=== PATIENT | male | born 1955 | race Caucasian/White ===

== ENCOUNTER 2016-05-21 13:38 | Inpatient (IN) | payer OTHER ==
[~2016-05-21] VITALS: Ht 177.8 cm; Wt 131.5 kg
[~2016-05-21 13:38] MED LIST: AVODART0.5 M1 PO; AZELASTINE137 MCG/0. NASB; CLONAZEPAM0.5 M2 PO; CLOPIDOGREL75 M1 PO; DILAUDID 4 MG TA4 MG PO; DILAUDID2 MG PO; ECOTRIN81 MG PO; FAMOTIDINE40 M1 PO; FOLIC ACID1 M1 PO; FONDAPARIN10 MG/0.8 SC; METHOTREXATE 22.5 MG PO; MULTIVITAMIN1 TAB PO; NASONEX0.05 MG/Ac; NASONEX0.05 MG/Ac INH; PERCOCET 325 MG1 TA2 PO; PERCOCET 325 MG1 TAB PO; PRAVACHOL80 M1 PO; SERTRALINE HCL50 MG PO; TERAZOSIN HCL10 M1 PO; TRAMADOL HCL50 MG PO; VALTREX1 GM PO; XELJANZ5 MG PO; ZOFRAN4 M1 SL
--- NOTE | 2016-05-21 13:49 | NUR ---
PT STATES HE TOOK TAMIFLU THIS AMD AND HIS IS CURRENTLY ON AMOXICILLIN BID
--- NOTE | 2016-05-21 13:49 | NUR ---
PT STATES HE AN URI AT [facility] AND FINISHED ABX ABOUT 1 WEEK AGO. PT STATES COUGH CONT. AND HIS SINUSES ARE SWOLLEN. PT HAVE FEVER, NAUSEA AND HAS A CROUP TYPE COUGH.
--- NOTE | 2016-05-21 14:10 | NUR ---
DR MENJIVAR AT BEDSIDE
--- NOTE | 2016-05-21 14:37 | NUR ---
BACK FROM X-RAY TO ROOM 12.
--- NOTE | 2016-05-21 14:45 | NUR ---
FLU SWAB TAKEN THROAT CULTURE TAKEN BLOOD DTWN DIRECTED. 20 G ALBA PLACED IN LAC IV OF N/S STARTED W/O X ONE LITER PT MEDICATED DIRECTED, SEE MAR
--- NOTE | 2016-05-21 14:52 | RADIOLOGY REPORT ---
EXAMINATION: PA and lateral chest radiograph CLINICAL INFORMATION: Cough and fever COMPARISON: Chest radiograph 04/28/2016 TECHNIQUE: PA and lateral views of the chest were obtained. FINDINGS: Stable appearing chronic elevation of the left hemidiaphragm. Stable peribronchial thickening suggesting chronic small airways disease. No new focal airspace opacities are appreciated. The interstitium remains prominent and unchanged. No pneumothorax. Chronic left pleural thickening. Median sternotomy wires appear intact. No acute osseous abnormalities. IMPRESSION: Chronic elevation of the left hemidiaphragm, chronic interstitial markings, and chronic small airways disease without focal pneumonia appreciated.
[2016-05-21 14:54] LABS: ABSOLUTE BASOPHIL COUNT 0 /CUMM (0.0-0.2); ABSOLUTE EOSINOPHIL COUNT 0 /CUMM (0.0-0.7); ABSOLUTE GRANULOCYTE CT 5.1 /CUMM (1.4-6.5); ABSOLUTE LYMPH COUNT 0.7 /CUMM (1.2-3.4); BASOPHIL % 0.4 % (0.0-2.0); EOSINOPHIL % 0.4 % (0-5); GRANULOCYTE % 74.8 % (42.2-75.2); HEMATOCRIT 41.6 % (42-52); MEAN CORPUSCULAR HGB 31.9 PG (27.0-31.0); MEAN CORPUSCULAR HGB CONC 33.2 G/DL (33.0-37.0); MEAN PLATELET VOLUME 7.5 FL (7.4-10.4); PLATELET COUNT 265 /CUMM (130-400); RBC DISTRIBUTION WIDTH 14.5 % (11.5-14.5); RED BLOOD CELL CT 4.34 /CUMM (4.70-6.10); WHITE BLOOD CELL COUNT 6.9 /CUMM (4.8-10.8)
--- NOTE | 2016-05-21 14:54 | NUR ---
RT PAGED FOR AGUSTO
[2016-05-21] MEDS ORDERED: BREO ELLIPTA 11 EACH PO (15:07)
[2016-05-21] MEDS ORDERED: AMOXICILLIN875 M1 PO (15:10)
[2016-05-21] MEDS ORDERED: TAMIFLU75 M1 PO (15:10)
[2016-05-21] MEDS ORDERED: CHERATUSSIN AC118 ML PO (15:10)
[2016-05-21] MEDS ORDERED: ALBUTEROL0.63 MG/1 INH/SOL (15:12)
--- NOTE | 2016-05-21 15:13 | ED INFLUENZA/URI COMPLAINT ---
See Addendum History of Present Illness General Chief Complaint: Upper Respiratory Sx/Fever Stated Complaint: FEVER,SORE THROAT,COUGHING Source: patient, family, old records Exam Limitations: no limitations Vital Signs & Intake/Output Vital Signs & Intake/Output Vital Signs Date Time Temp Pulse Resp B/P Pulse O2 O2 Flow FiO2 Ox Delivery Rate 05/21 1549 92 Room Air 05/21 1500 95 05/21 1349 100.4 115 18 132/76 92 Room Air Allergies Coded Allergies: erythromycin base (From Erythrocin) (Severe, ANAPHYLACTIC 07/11/15) Reconcile Medications Albuterol Sulfate 0.63 MG/3 ML VIAL.NEB 1 Vial INH/LA 4 TIMES/DAY PRN BREATHING PROBLEMS (Reported) Amoxicillin 875 MG TABLET 1 TAB PO BID FLU (Reported) AZELASTINE HCL (Astelin) 137 MCG/0.137 ML SPRAY.PUMP 2 SPRAY NASB BID ALLERGIES (Reported) Clonazepam 0.5 MG TABLET 1 TAB PO DAILY RESTLESS LEGS (Reported) CLOPIDOGREL BISULFATE (Clopidogrel) 75 MG TABLET 1 TAB PO DAILY BLOOD THINNER (Reported) Dutasteride (Avodart) 0.5 MG CAPSULE 1 CAP PO DAILY PROSTATE (Reported) Famotidine 40 MG TABLET 1 TAB PO BID GI (Reported) Fluticasone/Vilanterol (Breo Ellipta 100-25 Mcg INH) 100 MCG-25 MCG/DOSE BLST.W.DEV 1 PUFF PO DAILY BREATHING PROBLEMS (Reported) Folic Acid 1 MG TABLET 1 MG PO DAILY FOLIC ACID SUPPLEMENT (Reported) Fondaparinux Sodium 10 MG/0.8 ML SYRINGE 10 MG SC AT BEDTIME HEART Guaifenesin/Codeine Phosphate (Cheratussin AC Syrup) 100 MG-10 MG/5 ML LIQUID 10 ML PO Q4P PRN COUGH (Reported) Methotrexate 2.5 MG TABLET 20 MG PO QW ARTHRITIS (Reported) Mometasone Furoate (Nasonex) 0.05 MG/Actuation SPR 2 PUFF INH DAILY ALLERGYS Multivitamin (Multiple Vitamins) 1 EACH TABLET 1 TAB PO DAILY SUPPLEMENT ( Reported) Oseltamivir Phosphate (Tamiflu) 75 MG CAPSULE 1 CAP PO BID FLU (Reported) Pravastatin Sodium 80 MG TABLET 1 TAB PO QPM CHOLESTEROL (Reported) SERTRALINE HCL (Sertraline Hydrochloride) 50 MG TABLET 1 TAB PO DAILY DEPRESSION (Reported) Terazosin Hydrochloride (Terazosin HCl) 10 MG CAP 20 MG PO AT BEDTIME PROSTATE (Reported) Tofacitinib Citrate (Xeljanz) 5 MG TABLET 10 MG PO DAILY ARTHRITIS (Reported) TRAMADOL HCL (Tramadol HCl) 50 MG TABLET 50 MG PO Q12 PRN PAIN Triage Note: PT STATES HE AN URI AT [place] AND FINISHED ABX ABOUT 1 WEEK AGO. PT STATES COUGH CONT. AND HIS SINUSES ARE SWOLLEN. PT HAVE FEVER, NAUSEA AND HAS A CROUP TYPE COUGH. Triage Nurses Notes Reviewed? yes Onset: 3 weeks Duration: week(s):, continues in ED, getting worse Timing: recent history Severity: severe Prior Episodes/Possible Cause: illness exposure Modifying Factors: Improves With: medication, rest. Associated Symptoms: chest pain, cough, dizziness, facial pain, lightheadedness, nasal congestion, nasal drainage, sinus infection, sore throat HPI: 3 weeks prior to admission patient has had sore throat nonproductive cough nasal congestion body aches now with sinus pain and chest tightness. He denies fever chills shortness of breath dysuria rash bleeding. He's been on 2 courses of antibiotics and started Tamiflu today. (JUANA MENJIVAR MD) Past History Travel History Traveled to [place] past 21 day No Medical History Any Pertinent Medical History? see below for history Neurological: CVA with residual right-sided weakness EENT: NONE Cardiovascular: CAD, hyperlipidemia, myocardial infarction, RBBB Respiratory: obstructive sleep apnea, pulmonary hypertension Gastrointestinal: GERD, hiatal hernia, BARIATRIC SURGERY Hepatic: cholecystitis Musculoskeletal: rheumatoid arthritis Psychiatric: depression Endocrine: obesity Blood Disorders: DVT, PE, LOVENOX/ COUMADIN FAILURE Cancer(s): NONE PLASTIC MOLDER/Reproductive: BPH Other Medical Hx: Amputation of the left ring finger Fracture of the right wrist Cellulitis of the right leg 2 years prior to admission History of MRSA: No History of VRE: No History of CDIFF: No Pneumonia Vaccine: 02/01/14 Surgical History Surgical History: non-contributory Psychosocial History Who do you live with Other (see notes) Services at Home None What is your primary language Indonesian Tobacco Use: Never used ETOH Use: denies use Illicit Drug Use: denies illicit drug use Family History Family History, If Any: FATHER (Rectal mass). father and cousin (factor VIII disorder). Hx Contributory? No (JUANA MENJIVAR MD) Review of Systems Review of Systems Constitutional: Reports: see HPI, malaise, weakness. EENTM: Reports: see HPI, nasal congestion, throat pain. Respiratory: Reports: see HPI, cough. Cardiovascular: Reports: see HPI, chest pain. GI: Reports: no symptoms. Genitourinary: Reports: no symptoms. Musculoskeletal: Reports: see HPI, joint pain. Skin: Reports: no symptoms. Neurological/Psychological: Reports: no symptoms. Hematologic/Endocrine: Reports: no symptoms. Immunologic/Allergic: Reports: see HPI. All Other Systems: Reviewed and Negative (JUANA MENJIVAR MD) Physical Exam Physical Exam General Appearance: well developed/nourished, alert, awake, anxious, moderate distress, obese Head: atraumatic, normal appearance, tenderness (frontal sinus) Eyes: Bilateral: normal appearance, PERRL, EOMI. Ears, Nose, Throat: normal ENT inspection, pharyngeal erythema Neck: normal inspection, supple, lymphadenopathy (R), lymphadenopathy (L), no midline tenderness Respiratory: chest non-tender, decreased breath sounds Cardiovascular: regular rate/rhythm, normal peripheral pulses, norml femoral pulses equa Peripheral Pulses: 4+ carotid (R), 4+ carotid (L) Gastrointestinal: normal bowel sounds, soft, non-tender, no organomegaly Back: normal inspection, normal range of motion, no vertebral tenderness Extremities: normal inspection, normal capillary refill, normal range of motion, no edema Neurologic/Psych: no motor/sensory deficits, awake, alert, oriented x 3, normal gait, normal mood/affect Reflexes: 2+: bicep (R), bicep (L). Skin: intact, normal color, warm/dry Lymphatic: adenopathy Core Measures Severe Sepsis Present: No Septic Shock Present: No (JUANA MENJIVAR MD) Progress Differential Diagnosis: influenza, otitis, pneumonia, pharyngitis, sinusitis Plan of Care: Orders Procedure Date/time Status Regular Diet 05/21 D Active Patient Data 05/21 1549 Active OXYGEN SETUP (GEN) 05/21 1527 Active Saline Lock 05/21 1527 Active Admit to inpatient 05/21 1527 Active Vital Signs 05/21 1527 Active Activity/Ambulation 05/21 1527 Active Code Status 05/21 1527 Active AEROSOL (GEN) 05/21 1518 Complete VIRAL CULTURE 05/21 1453 Active RAPID VIRAL INFLUENZA A 05/21 1416 Complete THROAT CULTURE W/QUICK STREP 05/21 1416 Active TROPONIN LEVEL 05/21 141 Complete COMPREHENSIVE METABOLIC PANEL 05/21 141 Complete CBC WITHOUT DIFFERENTIAL 05/21 141 Complete EKG 05/21 141 Active Laboratory Tests 05/21/16 1453: Virus Culture Pending 05/21/16 1448: Anion Gap 9, Estimated GFR > 60, BUN/Creatinine Ratio 15.0, Glucose 100 H, Calcium 9.0, Total Bilirubin 0.7, AST 36, ALT 49, Alkaline Phosphatase 50, Troponin I < 0.01, Total Protein 7.5, Albumin 3.9, Globulin 3.6, Albumin/ Globulin Ratio 1.1, CBC w Diff NO MAN DIFF REQ, RBC 4.34 L, MCV 96.0 H, MCH 31.9 H, RDW 14.5, MPV 7.5, Gran % 74.8, Lymphocytes % 10.2 L, Monocytes % 14.2 H, Eosinophils % 0.4, Basophils % 0.4, Absolute Granulocytes 5.1, Absolute Lymphocytes 0.7 L, Absolute Monocytes 1.0 H, Absolute Eosinophils 0, Absolute Basophils 0, PUBS MCHC 33.2 05/21/2016 4:03:[address] Dubon who agrees for admission. (LENNIE ALEJANDRE MD) Diagnostic Imaging: Viewed by Me: Radiology Read. Discussed w/RAD: Radiology Read. CXR Impression: no acute abnormality Initial ED EKG: RBBB, no ST T wave changes Prior EKG: unchanged Rhythm Strip: sinus tachycardia Hand-Off Endorsed To: LENNIE ALEJANDRE MD Endorsed Time: 1516 Pending: labs (JUANA MENJIVAR MD) Departure Departure Disposition: STILL A PATIENT Condition: Stable Clinical Impression Primary Impression: Sinusitis, acute Qualifiers: Sinusitis location: unspecified location Recurrence: not specified as recurrent Qualified Code: J01.90 - Acute sinusitis, unspecified Secondary Impressions: Bronchitis, acute, with bronchospasm Fever Qualifiers: Fever type: unspecified Qualified Code: R50.9 - Fever, unspecified Referrals: RADHA DUBON MD (PCP/Family) Departure Forms: Customer Survey General Discharge Information (JUANA MENJIVAR MD) Departure Time of Disposition: 1558 Admission Note Spoke With: RADHA DUBON MD Documentation of Exam: Documentation of any treatments & extenuating circumstances including Concerns Regarding Discharge (functional status, medication knowledge or non-compliance, living conditions, etc.) that warrant an admission rather than observation: [ TAMIFLU, IV FLUIDS, PAIN CONTROL, TRC/NEBS] (PILI VIZCAINO,LENNIE)
--- NOTE | 2016-05-21 15:19 | NUR ---
CRITICAL TEST RESULTS [id number] KRYSTAL BUCK 61 M TESTS AND RESULTS: INFLUENZA A POSITIVE Results received and read back by: LUCINDA BETANCUR Results received date and time: 05/21/16 4859 The following provider was notified of the results, and read the results back: DR MENJIVAR Notified date and time: 05/21/16 at 1513
--- NOTE | 2016-05-21 15:59 | History & Physical ---
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 Chest pain is reproducible only with cough. Currently denies any chest discomfort/pain. Patient was seen by his PCP Dr. Dubon earlier today and sent into ED after receiving Tamiflu shot. He had a bronchitis about a month ago and finished 2 week course of amoxicillin. Since then he has been in his usual state until 3 day sago. Patient reports he got the flu shot this season. No recent sick contact/illness/travel. Denies any shortness of breath, dizziness, lightheadedness, headache, abdominal pain, vomiting, and diarrhea. Allergies/Medications Allergies: Coded Allergies: erythromycin base (From Erythrocin) (Severe, ANAPHYLACTIC 07/11/15) Home Med list Albuterol Sulfate 0.63 MG/3 ML VIAL.NEB 1 Vial INH/LA 4 TIMES/DAY PRN BREATHING PROBLEMS (Reported) Amoxicillin 875 MG TABLET 1 TAB PO BID FLU (Reported) AZELASTINE HCL (Astelin) 137 MCG/0.137 ML SPRAY.PUMP 2 SPRAY NASB BID ALLERGIES (Reported) Clonazepam 0.5 MG TABLET 1 TAB PO DAILY RESTLESS LEGS (Reported) CLOPIDOGREL BISULFATE (Clopidogrel) 75 MG TABLET 1 TAB PO DAILY BLOOD THINNER (Reported) Dutasteride (Avodart) 0.5 MG CAPSULE 1 CAP PO DAILY PROSTATE (Reported) Famotidine 40 MG TABLET 1 TAB PO BID GI (Reported) Fluticasone/Vilanterol (Breo Ellipta 100-25 Mcg INH) 100 MCG-25 MCG/DOSE BLST.W.DEV 1 PUFF PO DAILY BREATHING PROBLEMS (Reported) Folic Acid 1 MG TABLET 1 MG PO DAILY FOLIC ACID SUPPLEMENT (Reported) Fondaparinux Sodium 10 MG/0.8 ML SYRINGE 10 MG SC AT BEDTIME HEART Guaifenesin/Codeine Phosphate (Cheratussin AC Syrup) 100 MG-10 MG/5 ML LIQUID 10 ML PO Q4P PRN COUGH (Reported) Methotrexate 2.5 MG TABLET 20 MG PO QW ARTHRITIS (Reported) Mometasone Furoate (Nasonex) 0.05 MG/Actuation SPR 2 PUFF INH DAILY ALLERGYS Multivitamin (Multiple Vitamins) 1 EACH TABLET 1 TAB PO DAILY SUPPLEMENT ( Reported) Oseltamivir Phosphate (Tamiflu) 75 MG CAPSULE 1 CAP PO BID FLU (Reported) Pravastatin Sodium 80 MG TABLET 1 TAB PO QPM CHOLESTEROL (Reported) SERTRALINE HCL (Sertraline Hydrochloride) 50 MG TABLET 1 TAB PO DAILY DEPRESSION (Reported) Terazosin Hydrochloride (Terazosin HCl) 10 MG CAP 20 MG PO AT BEDTIME PROSTATE (Reported) Tofacitinib Citrate (Xeljanz) 5 MG TABLET 10 MG PO DAILY ARTHRITIS (Reported) TRAMADOL HCL (Tramadol HCl) 50 MG TABLET 50 MG PO Q12 PRN PAIN Past History Travel History Traveled to [place] past 21 day No Medical History Neurological: CVA with residual right-sided weakness EENT: NONE Cardiovascular: CAD, hyperlipidemia, myocardial infarction, RBBB Respiratory: obstructive sleep apnea, pulmonary hypertension Gastrointestinal: GERD, hiatal hernia, BARIATRIC SURGERY Hepatic: cholecystitis Musculoskeletal: rheumatoid arthritis Psychiatric: depression Endocrine: obesity Blood Disorders: DVT, PE, LOVENOX/ COUMADIN FAILURE Cancer(s): NONE COOK DINNER/Reproductive: BPH Other Medical Hx: Amputation of the left ring finger Fracture of the right wrist Cellulitis of the right leg 2 years prior to admission History of MRSA: No History of VRE: No History of CDIFF: No Pneumonia Vaccine: 02/01/14 Surgical History Surgical History: non-contributory Past Family/Social History Family History Relations & Conditions if any FATHER (Rectal mass). father and cousin (factor VIII disorder). Psychosocial History Where do you live? Home Who Do You Live With? spouse Services at Home: None Smoking Status: Never Smoked ETOH Use: denies use Illicit Drug Use: denies illicit drug use Review of Systems Review of Systems Constitutional: Reports: see HPI. Exam & Diagnostic Data Last 24 Hrs of Vital Signs/I&O Vital Signs Date Time Temp Pulse Resp B/P Pulse O2 O2 Flow FiO2 Ox Delivery Rate 05/21 2000 Room Air Room Air 05/21 1822 92 Room Air Room Air 01/18 1820 98.8 85 18 130/60 91 Room Air 05/21 1637 101.6 98 20 112/60 92 Room Air 05/21 1549 92 Room Air 05/21 1500 95 05/21 1349 100.4 115 18 132/76 92 Room Air Intake & Output 05/21 1600 05/21 0800 05/21 0000 Intake Total Output Total Balance Patient 131.542 kg Weight Physical Exam General Appearance Alert, Oriented X3, Cooperative, No Acute Distress Skin No Rashes, No Breakdown, No Significant Lesion HEENT Atraumatic, PERRLA, EOMI, Mucous Membr. moist/pink Neck Supple, No JVD, No LAD Cardiovascular Regular Rate, Normal S1, Normal S2, No Murmurs, Gallops, Rubs Lungs Clear to Auscultation, Normal Air Movement Abdomen Normal Bowel Sounds, Soft, No Tenderness Extremities No Clubbing, No Cyanosis, No Edema, Normal Pulses, No Tenderness/ Swelling Vascular Normal Pulses, Pulses Symmetrical Last 24 Hrs of Labs/Lester: Laboratory Tests 05/21/16 1453: Virus Culture Pending 05/21/16 1448: Anion Gap 9, Estimated GFR > 60, BUN/Creatinine Ratio 15.0, Glucose 100 H, Calcium 9.0, Total Bilirubin 0.7, AST 36, ALT 49, Alkaline Phosphatase 50, Troponin I < 0.01, Total Protein 7.5, Albumin 3.9, Globulin 3.6, Albumin/ Globulin Ratio 1.1, CBC w Diff NO MAN DIFF REQ, RBC 4.34 L, MCV 96.0 H, MCH 31.9 H, RDW 14.5, MPV 7.5, Gran % 74.8, Lymphocytes % 10.2 L, Monocytes % 14.2 H, Eosinophils % 0.4, Basophils % 0.4, Absolute Granulocytes 5.1, Absolute Lymphocytes 0.7 L, Absolute Monocytes 1.0 H, Absolute Eosinophils 0, Absolute Basophils 0, PUBS MCHC 33.2 Assessment/Plan Assessment: 61 year old genlteman with a PMH significant for Factor V deficiency, 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 # URI symptoms most likely 2/2 influenza * Pt received Tamiflu in ER for influenza. Continue for 5 days. * IV hydration * TRC nebulizer treatment as needed * Continue home inhalers # H/o recurrent DVTs The patient has had a history of DVT and PE in the past failed on Coumadin and Lovenox. Has an IVC filter. * Cont home dosage of Plavix and fondaparinux (to be brought in by family avis) # H/o CVA * Continue with Plavix and statin at home dose * # Obstructive sleep apnea syndrome * Nocturnal CPAP # Rheumatoid arteritis * Continue daily Xeljanz and weekly methotrexate at home dose # Hyperlipidemia * Continue pravastatin 80 mg PO daily # GERD (gastroesophageal reflux disease) * Continue Pepcid 40mg PO daily # Mood disorders * Continue Zoloft and clonazepam at home dose - Heart healthy diet - Mild pain pathway - DVTppx with Plavix & fondaparinux - Full code As Ranked By This Provider Problem List: 1. Influenza A 2. Fever Qualifiers Fever type: unspecified Qualified Code: R50.9 - Fever, unspecified 3. Full code status 4. DVT prophylaxis Core Measures/Miscellaneous Acute Coronary Syndrome ACS Diagnosis: No Cerebrovascular Accident CVA/TIA Diagnosis: No Congestive Heart Failure CHF Diagnosis: No Venous Thromboembolism VTE Risk Factors: Age > 40 VTE Prophylaxis Ordered Inpt: Mech & Pharm No Mech VTE prophylaxis d/t: VTE low risk No VTE Pharm Prophylaxis d/t: VTE low risk VTE Diagnosis: No VTE Type: NONE VTE Confirmed by (Test): NONE Severe Sepsis Severe Sepsis Present: No Septic Shock Septic Shock Present: No Miscellaneous Documentation Attending Case Discussed With: RADHA DUBON MD Primary Care Physician: RADHA DUBON MD Patient sees these Specialists PCP Rheum Cardio Pulm Level of Patient Care: General Medicine JEAN PIERRE DE LEÓN 05/21/16 1902: Resident Review Statement Resident Statement: examined this patient, discussed with international trade specialist, agreed with international trade specialist Other Findings: Patient is 61-year-old gentleman with history of coronary artery disease, CVA, myocardial infarction, hypertension, bariatric surgery, rheumatoid arthritis on immunosuppressants, history of DVT and PE on subcutaneous anticoagulation came to emergency room with chief complaint of fever, sore throat, fatigue and myalgia for a couple of days. Patient admits that he spiked fever earlier this morning and was very tired. He had sore throat and was treated with 2 courses of antibiotics. He had his flu shot this year. He lives at home with his and denied any sick contact. He really denied chills, chest pain, shortness of breath, any urinary or bowel complaints. On admission his labs were temperature 100.4, pulse 1:15, respiratory rate 18, blood pressure 132/76 and he was saturating 92% on room air. Labs showed WBC count 6.9, hemoglobin 13.8, hematocrit 41.6, platelet count 265, sodium 138, potassium 4.2, BU and 12 and creatinine 0.8. In ER his influenza A came back positive Chest x-ray was negative for any acute pathology. On examination Alert and oriented 3 Neck supple Chest mildly decreased breath sounds Abdomen soft with normal bowel sounds Extremities no cyanosis or edema noted No neurological deficit noted on neurological examination Assessment and plan Patient is 61-year-old gentleman with history of coronary artery disease, CVA, myocardial infarction, hypertension, bariatric surgery, rheumatoid arthritis on immunosuppressants, history of DVT and PE on subcutaneous anticoagulation came to emergency room with chief complaint of fever, sore throat, fatigue and myalgia for a couple of days and found to have influenza positive on admission. We'll admit patient to general medical floor We will monitor his vital signs We will hydrate patient gently We'll continue all his home medications but will hold tofacitinib citrate and methotrexate which was last taken on Thursday. As patient is on fondaparinux sodium 10 mg subcutaneous daily we will request patient to bring medication from home and we will continue it here Patient was started on oseltamivir 75 mg twice a day by PCP and we will continue it here for total of 5 days Heart healthy diet Pharmacological DVT prophylaxis Patient is full code
--- NOTE | 2016-05-21 16:37 | NUR ---
PT HAS BED ASSIGNMENT 214. BED IS NOT CLEAN.
--- NOTE | 2016-05-21 17:25 | NUR ---
PT ADMITTED TO ROOM # 214. ORAL REPORT GIVEN TO JOVON LYNCH. ALL V.S.S. PT READY FOR TRANSFER.
[2016-05-21 18:20] VITALS: BP 130/60
--- NOTE | 2016-05-21 19:33 | Admission Certification ---
Admission Certification Certification Statement - As attending physician, I certify that at the time of - admission, based on clinical presentation, severity of - symptoms, need for further diagnostic testing and - therapeutic interventions, and risk of adverse outcomes - without in-hospital treatment, in my clinical assessment, - this patient requires an acute hospital stay for a minimum - of two nights or longer. I have also considered psychsocial - factors such as support system, advanced age, financial - issues, cognitive issues, and failed out-patient treatments, - past re-admission history, safety of patient, and lack of - compliance as applicable. Specific rationale supporting this admission is: Influenza A despite flu vaccine with severe headache and clinical dehydration
--- NOTE | 2016-05-21 19:40 | PN- Att Addend ---
Attending Addendum Attending Brief Note 61-year-old male not been feeling well for a couple of days and despite having taken the flu vaccine he got sick with aches all over high fevers severe headache nausea comes to the ER despite started taking the first Tamiflu this morning and not feeling any better and the quick flu test was positive for influenza A patient is admitted will have gentle hydration and continue the Tamiflu treatment of the nausea. Laboratory Tests 05/21 05/21 1453 1448 Chemistry Sodium (137 - 145 mmol/L) 138 Potassium (3.5 - 5.1 mmol/L) 4.2 Chloride (98 - 107 mmol/L) 104 Carbon Dioxide (22 - 30 mmol/L) 25 Anion Gap (5 - 16) 9 BUN (9 - 20 mg/dL) 12 Creatinine (0.7 - 1.2 mg/dL) 0.8 Estimated GFR (>60 ml/min) > 60 BUN/Creatinine Ratio (7 - 25 %) 15.0 Glucose (65 - 99 mg/dL) 100 H Calcium (8.4 - 10.2 mg/dL) 9.0 Total Bilirubin (0.2 - 1.3 mg/dL) 0.7 AST (17 - 59 U/L) 36 ALT (21 - 72 U/L) 49 Alkaline Phosphatase (< 127 U/L) 50 Troponin I (<0.11 ng/ml) < 0.01 Total Protein (6.3 - 8.2 g/dL) 7.5 Albumin (3.5 - 5.0 g/dL) 3.9 Globulin (1.9 - 4.2 gm/dL) 3.6 Albumin/Globulin Ratio (1.1 - 2.2 %) 1.1 Hematology CBC w Diff NO MAN DIFF REQ WBC (4.8 - 10.8 /CUMM) 6.9 RBC (4.70 - 6.10 /CUMM) 4.34 L Hgb (14.0 - 18.0 G/DL) 13.8 L Hct (42 - 52 %) 41.6 L MCV (80.0 - 94.0 FL) 96.0 H MCH (27.0 - 31.0 PG) 31.9 H RDW (11.5 - 14.5 %) 14.5 Plt Count (130 - 400 /CUMM) 265 MPV (7.4 - 10.4 FL) 7.5 Gran % (42.2 - 75.2 %) 74.8 Lymphocytes % (20.5 - 51.1 %) 10.2 L Monocytes % (1.7 - 9.3 %) 14.2 H Eosinophils % (0 - 5 %) 0.4 Basophils % (0.0 - 2.0 %) 0.4 Absolute Granulocytes (1.4 - 6.5 /CUMM) 5.1 Absolute Lymphocytes (1.2 - 3.4 /CUMM) 0.7 L Absolute Monocytes (0.10 - 0.60 /CUMM) 1.0 H Absolute Eosinophils (0.0 - 0.7 /CUMM) 0 Absolute Basophils (0.0 - 0.2 /CUMM) 0 PUBS MCHC (33.0 - 37.0 G/DL) 33.2 Serology Virus Culture Pending Laboratory Tests 05/21/16 1453: Virus Culture Pending 05/21/16 1448: Anion Gap 9, Estimated GFR > 60, BUN/Creatinine Ratio 15.0, Glucose 100 H, Calcium 9.0, Total Bilirubin 0.7, AST 36, ALT 49, Alkaline Phosphatase 50, Troponin I < 0.01, Total Protein 7.5, Albumin 3.9, Globulin 3.6, Albumin/ Globulin Ratio 1.1, CBC w Diff NO MAN DIFF REQ, RBC 4.34 L, MCV 96.0 H, MCH 31.9 H, RDW 14.5, MPV 7.5, Gran % 74.8, Lymphocytes % 10.2 L, Monocytes % 14.2 H, Eosinophils % 0.4, Basophils % 0.4, Absolute Granulocytes 5.1, Absolute Lymphocytes 0.7 L, Absolute Monocytes 1.0 H, Absolute Eosinophils 0, Absolute Basophils 0, PUBS MCHC 33.2 Current Medications Sig/Nicola Start time Last Medication Dose Route Stop Time Status Admin Acetaminophen 650 MG Q6P PRN 05/21 1814 AC PO Acetaminophen 0 .STK-MED ONE 05/21 1609 DC IV Acetaminophen 1,000 MG ONCE ONE 05/21 1530 DC 05/21 IV 05/21 1531 1614 Albuterol Sulfate 3 ML Q6P PRN 05/21 1815 AC INH Albuterol Sulfate 3 ML ONCE ONE 05/21 1415 DC 05/21 INH 05/21 1416 1506 Budesonide/ 2 PUF BID 05/21 2200 AC Formoterol Fumarate INH Clonazepam 0.5 MG DAILY 05/22 1000 AC PO 05/29 0959 Clopidogrel Bisulfate 75 MG DAILY 05/22 1000 AC PO Doxazosin Mesylate 8 MG DAILY 05/22 1000 AC PO Dutasteride 0.5 MG DAILY 05/22 1000 AC PO Enoxaparin Sodium 40 MG DAILY 05/22 1000 DC SC Famotidine 40 MG DAILY 05/22 1000 AC PO Fondaparinux 10 MG AT BEDTIME 05/21 2200 AC SC Ipratropium [place] 2.5 ML ONCE ONE 05/21 1415 DC 05/21 INH 05/21 1416 1506 Methylprednisolone 0 .STK-MED ONE 05/21 1507 DC .ROUTE Methylprednisolone 125 MG ONCE ONE 05/21 1415 DC 05/21 IV 05/21 1416 1517 Morphine Sulfate 2 MG Q4P PRN 05/21 1815 AC IV Morphine Sulfate 0 .STK-MED ONE 05/21 1733 DC .ROUTE Morphine Sulfate 6 MG ONCE ONE 05/21 1730 DC 05/21 IV 05/21 1731 1742 Non-Formulary 0 SEE ADMIN CRITERIA 05/21 1845 DC Medication ANY Ondansetron HCl 0 .STK-MED ONE 05/21 1507 DC .ROUTE Ondansetron HCl 4 MG ONCE ONE 05/21 1415 DC 05/21 IV 05/21 1416 1517 Oseltamivir Phosphate 75 MG BID 05/21 2200 AC PO 05/25 2159 Oxycodone/ 1 TAB Q6P PRN 05/21 1815 AC Acetaminophen PO Oxymetazoline HCl 0 .STK-MED ONE 05/21 1507 DC YENNY Oxymetazoline HCl 2 SPRAY ONCE ONE 05/21 1415 DC 05/21 YENNY 05/21 1416 1516 Pravastatin Sodium 80 MG DAILY@1700 05/22 1700 AC PO Sertraline HCl 50 MG DAILY 05/21 1819 AC PO Sodium Chloride 1,000 ML Q20H 05/21 1830 AC 05/21 IV 1844 Sodium Chloride 1,000 ML BOLUS ONE 05/21 1730 DC 05/21 IV 05/21 1829 1727 Sodium Chloride 1,000 ML BOLUS ONE 05/21 1415 DC 05/21 IV 05/21 1514 1517 Rapid flu positive for influenza a. Will continue his own. DVT prophylactic medication
[2016-05-21 23:40] VITALS: BP 130/60
[2016-05-22 08:19] VITALS: BP 138/70
--- NOTE | 2016-05-22 09:04 | PN- Att Addend ---
Attending Addendum Attending Brief Note Patient feeling better, sitting in the chair temperatures down, vital signs are stable his only complaint is severe sinus pain right frontal amount will get an x-ray. Will monitor during the day, finish the IV fluids, if stable later on and depending on the x-ray results start disposition plans. Current Medications Sig/Nicola Start time Last Medication Dose Route Stop Time Status Admin Acetaminophen 650 MG Q6P PRN 05/21 1815 AC PO Acetaminophen 0 .STK-MED ONE 05/21 1609 DC IV Acetaminophen 1,000 MG ONCE ONE 05/21 1530 DC 05/21 IV 05/21 1531 1614 Albuterol Sulfate 3 ML Q6P PRN 05/21 1815 AC INH Albuterol Sulfate 3 ML ONCE ONE 05/21 1415 DC 05/21 INH 05/21 1416 1506 Benzonatate 100 MG ONCE ONE 05/21 2245 DC 05/21 PO 05/21 2246 2340 Budesonide/ 2 PUF BID 05/21 2200 AC Formoterol Fumarate INH Clonazepam 0.5 MG DAILY 05/22 1000 DC PO 05/29 0959 Clonazepam 0.5 MG AT BEDTIME 05/21 2200 AC 05/21 PO 05/28 2159 2203 Clopidogrel Bisulfate 75 MG DAILY 05/22 1000 AC PO Doxazosin Mesylate 8 MG DAILY 05/22 1000 DC PO Doxazosin Mesylate 8 MG AT BEDTIME 05/21 2200 AC PO Dutasteride 0.5 MG DAILY 05/22 1000 DC PO Dutasteride 0.5 MG AT BEDTIME 05/21 2200 AC 05/21 PO 2203 Enoxaparin Sodium 40 MG DAILY 05/22 1000 DC SC Famotidine 40 MG DAILY 05/22 1000 AC PO Fondaparinux 10 MG AT BEDTIME 05/21 2200 AC 05/21 SC 2150 Ipratropium [place] 2.5 ML ONCE ONE 05/21 1415 DC 05/21 INH 05/21 1416 1506 Melatonin 5 MG AT BEDTIME PRN 05/22 0645 AC PO Melatonin 5 MG ONCE ONE 05/21 2330 DC 05/21 PO 05/21 2331 2340 Methylprednisolone 0 .STK-MED ONE 05/21 1507 DC .ROUTE Methylprednisolone 125 MG ONCE ONE 05/21 1415 DC 05/21 IV 05/21 1416 1517 Morphine Sulfate 2 MG Q6P PRN 05/22 0845 AC IV Morphine Sulfate 2 MG Q4P PRN 05/21 1815 DC 05/21 IV 2043 Morphine Sulfate 0 .STK-MED ONE 05/21 1733 DC .ROUTE Morphine Sulfate 6 MG ONCE ONE 05/21 1730 DC 05/21 IV 05/21 1731 1742 Non-Formulary 0 SEE ADMIN CRITERIA 05/21 1845 DC Medication ANY Ondansetron HCl 0 .STK-MED ONE 05/21 1507 DC .ROUTE Ondansetron HCl 4 MG ONCE ONE 05/21 1415 DC 05/21 IV 05/21 1416 1517 Oseltamivir Phosphate 75 MG BID 05/21 2200 AC 05/21 PO 05/25 2159 2150 Oxycodone/ 1 TAB Q6P PRN 05/21 1815 DC 05/22 Acetaminophen PO 0407 Oxymetazoline HCl 0 .STK-MED ONE 05/21 1507 DC YENNY Oxymetazoline HCl 2 SPRAY ONCE ONE 05/21 1415 DC 05/21 YENNY 05/21 1416 1516 Pravastatin Sodium 80 MG DAILY@1700 05/22 1700 AC PO Sertraline HCl 50 MG DAILY 05/21 1819 AC PO Sodium Chloride 1,000 ML Q20H 05/21 1830 AC 05/21 IV 1844 Sodium Chloride 1,000 ML BOLUS ONE 05/21 1730 DC 05/21 IV 05/21 1829 1727 Sodium Chloride 1,000 ML BOLUS ONE 05/21 1415 DC 05/21 IV 05/21 1514 1517 Laboratory Tests 05/21/16 1453: Virus Culture Pending 05/21/16 1448: Anion Gap 9, Estimated GFR > 60, BUN/Creatinine Ratio 15.0, Glucose 100 H, Calcium 9.0, Total Bilirubin 0.7, AST 36, ALT 49, Alkaline Phosphatase 50, Troponin I < 0.01, Total Protein 7.5, Albumin 3.9, Globulin 3.6, Albumin/ Globulin Ratio 1.1, CBC w Diff NO MAN DIFF REQ, RBC 4.34 L, MCV 96.0 H, MCH 31.9 H, RDW 14.5, MPV 7.5, Gran % 74.8, Lymphocytes % 10.2 L, Monocytes % 14.2 H, Eosinophils % 0.4, Basophils % 0.4, Absolute Granulocytes 5.1, Absolute Lymphocytes 0.7 L, Absolute Monocytes 1.0 H, Absolute Eosinophils 0, Absolute Basophils 0, PUBS MCHC 33.2 Vital Signs Date Time Temp Pulse Resp B/P Pulse O2 O2 Flow FiO2 Ox Delivery Rate 05/22 0819 97.6 64 20 138/70 97 Room Air 05/22 0138 78 92
[2016-05-22] MEDS ORDERED: TAMIFLU75 M1 PO (14:18)
[2016-05-22] MEDS ORDERED: OXYCODONE HCL5 M1 PO (14:18)
[2016-05-22] MEDS ORDERED: MELATONIN5 M7 PO (14:18)
--- NOTE | 2016-05-22 14:19 | Patient Discharge Instructions ---
Discharge Instructions General Discharge Information You were seen/treated for: Influenza Special Instructions: Please follow up with Dr. Dubon within a week of discharge. Return to ED if you have any worsening or persistent fever, chills, cough, nasal congestion, shortness of breath, chest pain, nausea, vomiting. Diet Continue normal diet: Yes Activity Full Activity/No Limits: Yes Acute Coronary Syndrome Inclusion Criteria At DC or during hospital stay patient has or had the following: ACS DIAGNOSIS No Discharge Core Measures Meds if any: Prescribed or Continued at Discharge Meds if any: NOT Prescribed or Continued at Discharge Congestive Heart Failure Inclusion Criteria At DC or during hospital stay patient has or had the following: CHF DIAGNOSIS No Discharge Core Measures Meds if any: Prescribed or Continued at Discharge Meds if any: NOT Prescribed or Continued at Discharge Cerebrovascular accident Inclusion Criteria At DC or during hospital stay patient has or had the following: CVA/TIA Diagnosis No Discharge Core Measures Meds if any: Prescribed or Continued at Discharge Meds if any: NOT Prescribed or Continued at Discharge Venous thromboembolism Inclusion Criteria VTE Diagnosis No VTE Type NONE VTE Confirmed by (Test) NONE Discharge Core Measures - Per Current guidelines, there needs to be overlap - treatment for the first 5 days of Warfarin therapy. - If discharged on Warfarin prior to 5 days of - overlap therapy, the patient will need to be - assessed for post discharge needs including - *Post discharge parental anticoagulation - *Warfarin and/or parental anticoagulation education - *Follow up date to check INR post discharge At least 5 days overlap therapy as Inpatient No Meds if any: Prescribed or Continued at Discharge Note: Overlap Therapy is Warfarin and Anticoagulant Meds if any: NOT Prescribed or Continued at Discharge
--- NOTE | 2016-05-22 16:05 | RADIOLOGY REPORT ---
EXAMINATION: XR SINUSES CLINICAL INFORMATION: Sinus pain. Presumptive diagnosis of sinus congestion, sinusitis. COMPARISON: Sinus films dated 04/28/2016. TECHNIQUE: 4 views of the paranasal sinuses performed on 5 images. FINDINGS: The maxillary sinuses, frontal sinuses, ethmoid air cells and sphenoid sinuses are clear without focal thickening or opacities seen. No air-fluid levels are noted. The mastoid air cells are aerated bilaterally. There is minimal undulation of the nasal septum, convex to the left side. IMPRESSION: No sinus disease seen.
[2016-05-22 16:11] VITALS: BP 130/70
[2016-05-22] MEDS ORDERED: BENZONATATE100 M1 PO (16:14)
[2016-05-22] MEDS ORDERED: AUGMENTIN 875-1 EACH PO (16:27)
--- NOTE | 2016-05-22 18:13 | PN- Housestaff ---
Subjective Follow-up For: Influenza Sinusnitis Subjective: Patient seen and examined at bedside. He feels better overall but has persistent headache and pain in the sinuses, espeically in the periorbital areas. Denies any fever or chills overnight. Cough is also improving, now bringing up some yellowish sputum. No chest pain, palpitaitons, SOB. Review of Systems Constitutional: Reports: see HPI. Objective Last 24 Hrs of Vital Signs/I&O Vital Signs Date Time Temp Pulse Resp B/P Pulse O2 O2 Flow FiO2 Ox Delivery Rate 05/22 1611 98.0 57 18 130/70 92 05/22 1600 95 Room Air Room Air 05/22 1600 92 Room Air 05/22 1126 93 Room Air Room Air 05/22 0819 97.6 64 20 138/70 97 Room Air 05/22 0800 95 Room Air Room Air 05/22 0138 78 92 05/22 0000 Room Air 05/21 2340 99.7 72 20 130/60 91 CPAP 05/21 2001 Room Air Room Air Intake & Output 05/22 1600 05/22 0800 05/22 0000 Intake Total 1000 640 880 Output Total Balance 1000 640 880 Intake, IV 200 400 400 Intake, Oral 800 240 480 Patient 131.542 kg Weight Physical Exam General Appearance: Alert, Oriented X3, Cooperative, No Acute Distress Other Physical Findings: Skin No Rashes, No Breakdown, No Significant Lesion HEENT Atraumatic, PERRLA, EOMI, Mucous Membr. moist/pink Neck Supple, No JVD, No LAD Cardiovascular Regular Rate, Normal S1, Normal S2, No Murmurs, Gallops, Rubs Lungs Clear to Auscultation, Normal Air Movement Abdomen Normal Bowel Sounds, Soft, No Tenderness Extremities No Clubbing, No Cyanosis, No Edema, Normal Pulses, No Tenderness/ Swelling Vascular Normal Pulses, Pulses Symmetrical Current Medications: Current Medications Sig/Nicola Start time Last Medication Dose Route Stop Time Status Admin Acetaminophen 650 MG Q6P PRN 05/21 1814 DCD PO Albuterol Sulfate 3 ML Q6P PRN 05/21 1814 DCD 05/22 INH 1600 Benzonatate 100 MG TID 05/22 1000 DCD 05/22 PO 1621 Benzonatate 100 MG ONCE ONE 05/21 2244 DC 05/21 PO 05/21 2245 2340 Budesonide/ 2 PUF BID 05/21 2199 DCD 05/22 Formoterol Fumarate INH 0934 Clonazepam 0.5 MG DAILY 05/22 1000 DC PO 05/29 0959 Clonazepam 0.5 MG AT BEDTIME 05/21 2199 DCD 05/21 PO 05/28 215 2203 Clopidogrel Bisulfate 75 MG DAILY 05/22 1000 DCD 05/22 PO 0932 Doxazosin Mesylate 8 MG DAILY 05/22 1000 DC PO Doxazosin Mesylate 8 MG AT BEDTIME 05/21 2199 DCD PO Dutasteride 0.5 MG DAILY 05/22 1000 DC PO Dutasteride 0.5 MG AT BEDTIME 05/21 2200 DCD 05/21 PO 2203 Enoxaparin Sodium 40 MG DAILY 05/22 1000 DC SC Famotidine 40 MG DAILY 05/22 1000 DCD 05/22 PO 0932 Fondaparinux 10 MG AT BEDTIME 05/21 2199 DCD 05/21 SC 2150 Melatonin 5 MG AT BEDTIME PRN 05/22 0645 DCD PO Melatonin 5 MG ONCE ONE 05/21 2330 DC 05/21 PO 05/21 2331 2340 Morphine Sulfate 2 MG Q6P PRN 05/22 0845 DC IV Morphine Sulfate 2 MG Q4P PRN 05/21 1815 DC 05/21 IV 2043 Non-Formulary 0 SEE ADMIN CRITERIA 05/21 1845 DC Medication ANY Oseltamivir Phosphate 75 MG BID 05/21 2199 DCD 05/22 PO 05/25 215 0933 Oxycodone HCl 5 MG Q6P PRN 05/22 0945 DCD 05/22 PO 1454 Oxycodone/ 1 TAB Q6P PRN 05/21 1815 DC 05/22 Acetaminophen PO 0407 Pravastatin Sodium 80 MG DAILY@1700 05/22 1700 DCD PO Sertraline HCl 50 MG DAILY 05/21 1819 DCD 05/22 PO 0933 Sodium Chloride 1,000 ML Q20H 05/21 1830 DC 05/21 IV 1844 Sodium Chloride 1,000 ML BOLUS ONE 05/21 1730 DC 05/21 IV 05/21 1829 1727 Assessment/Plan Assessment: 61 year old genlteman with a PMH significant for Factor V deficiency, 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 # URI symptoms most likely 2/2 influenza * Pt received Tamiflu in ER for influenza. Continue for 4 more days. * Discontinue IV hydration * TRC nebulizer treatment as needed * Continue home inhalers # Sinusitis * Discharge the patient on Augmentin 875mg PO BID # H/o recurrent DVTs The patient has had a history of DVT and PE in the past failed on Coumadin and Lovenox. Has an IVC filter. * Cont home dosage of Plavix and fondaparinux (to be brought in by family tonight) # H/o CVA * Continue with Plavix and statin at home dose # Obstructive sleep apnea syndrome * Nocturnal CPAP # Rheumatoid arteritis * Continue daily Xeljanz and weekly methotrexate at home dose # Hyperlipidemia * Continue pravastatin 80 mg PO daily # GERD (gastroesophageal reflux disease) * Continue Pepcid 40mg PO daily # Mood disorders * Continue Zoloft and clonazepam at home dose - Heart healthy diet - Mild pain pathway - DVTppx with Plavix & fondaparinux - Full code Problem List: 1. Influenza A 2. Fever 3. Sinusitis, acute Pain Ratin Pain Location: Headache Sinus Pain Goal: Remain pain free Pain Plan: Moderate pathway Tomorrow's Labs & Rationales: None
--- NOTE | 2016-05-31 15:43 | Discharge Summary ---
Visit Information Visit Dates Admission Date: 05/21/16 Discharge Date: 05/22/16 Hospital Course Course Attending Physician: RADHA DUBON MD Primary Care Physician: MOODY VIZCAINO,RADHA Hospital Course: 61 year old male sick for 2 to 3 days fevers up to 101 degrees pleuritic chest analilia malaise lost appetite poor oral intake called me I ordered Tamiflu but was so sick that came to ER where Influenzae A was diagnosed ,He was continued on Tamiflu got IV fluids he also complained of bad headaches given analgesics also had sinus films and no sinusitis..The patient slowly improved and was discharged on the . Complications: None Allergies: Coded Allergies: erythromycin base (From Erythrocin) (Severe, ANAPHYLACTIC 07/11/15) Significant Procedures: SERVICE DATE: 05/21/16 EXAM TYPE: RAD - XRY-CHEST XRAY, PA AND LATERAL EXAMINATION: PA and lateral chest radiograph CLINICAL INFORMATION: Cough and fever COMPARISON: Chest radiograph 04/28/2016 TECHNIQUE: PA and lateral views of the chest were obtained. FINDINGS: Stable appearing chronic elevation of the left hemidiaphragm. Stable peribronchial thickening suggesting chronic small airways disease. No new focal airspace opacities are appreciated. The interstitium remains prominent and unchanged. No pneumothorax. Chronic left pleural thickening. Median sternotomy wires appear intact. No acute osseous abnormalities. IMPRESSION: Chronic elevation of the left hemidiaphragm, chronic interstitial markings, SERVICE DATE: 05/22/16 EXAM TYPE: RAD - XRY-SINUSES, COMPLETE EXAMINATION: XR SINUSES CLINICAL INFORMATION: Sinus pain. Presumptive diagnosis of sinus congestion, sinusitis. COMPARISON: Sinus films dated 04/28/2016. TECHNIQUE: 4 views of the paranasal sinuses performed on 5 images. FINDINGS: The maxillary sinuses, frontal sinuses, ethmoid air cells and sphenoid sinuses are clear without focal thickening or opacities seen. No air-fluid levels are noted. The mastoid air cells are aerated bilaterally. There is minimal undulation of the nasal septum, convex to the left side. IMPRESSION: No sinus disease seen. and chronic small airways disease without focal pneumonia appreciated. Pertinent Lab Results: 05/21/16 1453: Virus Culture Pending 05/21/16 1448: Anion Gap 9, Estimated GFR > 60, BUN/Creatinine Ratio 15.0, Glucose 100 H, Calcium 9.0, Total Bilirubin 0.7, AST 36, ALT 49, Alkaline Phosphatase 50, Troponin I < 0.01, Total Protein 7.5, Albumin 3.9, Globulin 3.6, Albumin/ Globulin Ratio 1.1, CBC w Diff NO MAN DIFF REQ, RBC 4.34 L, MCV 96.0 H, MCH 31.9 H, RDW 14.5, MPV 7.5, Gran % 74.8, Lymphocytes % 10.2 L, Monocytes % 14.2 H, Eosinophils % 0.4, Basophils % 0.4, Absolute Granulocytes 5.1, Absolute Lymphocytes 0.7 L, Absolute Monocytes 1.0 H, Absolute Eosinophils 0, Absolute Basophils 0, PUBS MCHC 33.2 Rapid flu positive for influenza a. Disposition Summary Disposition Principal Diagnosis: Influenza A with clinical dehydration. Additional Diagnosis: Factor V deficiency History of PE and DVT CVA CAD GERD RA OSAP Discharge Disposition: home or self care Discharge Instructions General Discharge Information Code Status: Full Code Patient's Diet: Healthy heart. Patient's Activity: As tolerated. Follow-Up Instructions/Appts: Follow up with Dr Dubon. Medications at Discharge Discharge Medications: Stop taking the following medications: Amoxicillin (Amoxicillin) 875 MG TABLET ORAL TWICE DAILY Qty = 20 Continue taking these medications: CLOPIDOGREL BISULFATE (Clopidogrel) 75 MG TABLET 1 Tablet ORAL DAILY Qty = 90 Comments: Last Taken: 12/15/14 Time: 9:00 AM Folic Acid (Folic Acid) 1 MG TABLET 1 Milligram ORAL DAILY Comments: Last Taken: 12/15/14 Time: 9:00 AM Famotidine (Famotidine) 40 MG TABLET 1 Tablet ORAL TWICE DAILY Comments: Last Taken: 05/22/16 Time: 9:30 AM SERTRALINE HCL (Sertraline Hydrochloride) 50 MG TABLET 1 Tablet ORAL DAILY Qty = 90 Comments: Last Taken: 12/15/14 Time: 9:00 AM Pravastatin Sodium (Pravastatin Sodium) 80 MG TABLET 1 Tablet ORAL Every night Qty = 90 Comments: Last Taken: 12/14/14 Time: 9:00 AM Terazosin Hydrochloride (Terazosin HCl) 10 MG CAP 20 Milligram ORAL AT BEDTIME Qty = 180 Comments: NOT GIVEN IN HOSPITAL Clonazepam (Clonazepam) 0.5 MG TABLET 1 Tablet ORAL DAILY Qty = 30 Comments: Last Taken: 12/14/14 Time: 9:00 PM Tofacitinib Citrate (Xeljanz) 5 MG TABLET 10 Milligram ORAL DAILY Comments: NOT GIVEN IN HOSPITAL Methotrexate (Methotrexate) 2.5 MG TABLET 20 Milligram ORAL Once a Week Comments: PT REPORTS TAKING THURSDAY NOT GIVEN IN HOSPITAL AZELASTINE HCL (Astelin) 137 MCG/0.137 ML SPRAY.PUMP 2 [place] Both sides of nose TWICE DAILY Comments: NOT GIVEN IN HOSPITAL Dutasteride (Avodart) 0.5 MG CAPSULE 1 Capsule ORAL DAILY Comments: NOT GIVEN IN HOSPITAL Multivitamin (Multiple Vitamins) 1 EACH TABLET 1 Tablet ORAL DAILY Comments: Last Taken: 12/15/14 Time: 9:00 AM Fondaparinux Sodium (Fondaparinux Sodium) 10 MG/0.8 ML SYRINGE 10 Milligram Inject into fatty tissue AT BEDTIME Qty = 30 Comments: Last Taken: 12/14/14 Time: 9:00 PM Mometasone Furoate (Nasonex) 0.05 MG/Actuation SPR 2 PUFF Inhale through mouth DAILY Qty = 17 Comments: Last Taken: 12/15/14 Time: 9:00 AM TRAMADOL HCL (Tramadol HCl) 50 MG TABLET 50 Milligram ORAL EVERY 12 HOURS as needed for PAIN Qty = 180 Comments: NOT GIVEN IN HOSPITAL Fluticasone/Vilanterol (Breo Ellipta 100-25 Mcg INH) 100 MCG-25 MCG/DOSE BLST.W.DEV 1 PUFF ORAL DAILY Qty = 180 Comments: NOT GIVEN IN HOSPITAL Guaifenesin/Codeine Phosphate (Cheratussin AC Syrup) 100 MG-10 MG/5 ML LIQUID 10 Milliliters ORAL EVERY 4 HOURS NEEDED as needed for COUGH Qty = 120 Albuterol Sulfate (Albuterol Sulfate) 0.63 MG/3 ML VIAL.NEB 1 Vial Inhale Solution 4 TIMES A DAY as needed for BREATHING PROBLEMS Comments: Last Taken: 05/22/16 Time: 4:00 PM Oseltamivir Phosphate (Tamiflu) 75 MG CAPSULE 1 Capsule ORAL TWICE DAILY Days = 4 Instructions: Last dose on 05/25 and then stop. Comments: Last Taken: 05/22/16 Time: 9:30 AM This prescription has been renewed Start taking the following new medications: Oxycodone HCl (Oxycodone HCl) 5 MG TABLET 5 Milligram ORAL EVERY SIX HOURS NEEDED as needed for Severe headache/ sinus pain Qty = 10 No Refills Comments: Last Taken: 05/22/16 Time: 3:00 PM Melatonin (Melatonin) 5 MG TABLET 5 Milligram ORAL AT BEDTIME as needed for INSOMNIA Days = 30 No Refills Comments: Last Taken: 05/21/16 Time: 11:30 PM Benzonatate (Benzonatate) 100 MG CAPSULE 100 Milligram ORAL THREE TIMES DAILY Days = 14 No Refills Comments: Last Taken: 05/22/16 Time: 4:00 PM Amoxicillin/Potassium Clav (Augmentin 875-125 Tablet) 875 MG-125 MG TABLET 1 Tablet ORAL TWICE DAILY Days = 7 No Refills Comments: NOT GIVEN IN HOSPITAL Copies To: RADHA DUBON MD Attending MD Review Statement Documenting Attending: RADHA DUBON MD
== END 2016-05-22 16:50 | DRG 194 ==
LOC: ENRESERVTM → ENRESERVDT → ERH 13:38 → ENPENDDIS 15:27 → 2NB 15:27 → ERHI 15:27 → 2NB 18:00
PROVIDERS: Emergency Medicine; ADMIT Internal Medicine
DX: J09.X2 Influenza due to identified novel influenza A virus with other respiratory manifestations (principal); I69.351 Hemiplegia and hemiparesis following cerebral infarction affecting right dominant side; D68.2 Hereditary deficiency of other clotting factors; Z68.41 Body mass index [BMI] 40.0-44.9, adult; E66.01 Morbid (severe) obesity due to excess calories; J32.9 Chronic sinusitis, unspecified; G47.33 Obstructive sleep apnea (adult) (pediatric); M06.9 Rheumatoid arthritis, unspecified; E78.5 Hyperlipidemia, unspecified; K21.9 Gastro-esophageal reflux disease without esophagitis; F39 Unspecified mood [affective] disorder
CPT/HCPCS: 2NBP; 6020; 70220; 87804; 87804-59; 93005; 93010; 96374; 96375; G0378; J0131; J2405; J2930; J3490

== ENCOUNTER 2016-09-30 21:51 | Observation (INO) | payer OTHER ==
[~2016-09-30 21:51] MED LIST changes: +ALBUTEROL0.63 MG/1 INH/SOL; +AMOXICILLIN875 M1 PO; +AUGMENTIN 875-1 EACH PO; +BENZONATATE100 M1 PO; +BREO ELLIPTA 11 EACH PO; +CHERATUSSIN AC118 ML PO; +MELATONIN5 M7 PO; +OXYCODONE HCL5 M1 PO; +TAMIFLU75 M1 PO
--- NOTE | 2016-09-30 22:02 | ED CARDIAC/CP/PALPITATIONS ---
History of Present Illness General Chief Complaint: Chest Pain Stated Complaint: "CHEST PAIN" Source: patient, family, old records Exam Limitations: no limitations Vital Signs & Intake/Output Vital Signs & Intake/Output Vital Signs Date Time Temp Pulse Resp B/P B/P Pulse O2 O2 Flow FiO2 Mean Ox Delivery Rate 10/01 0034 66 18 121/74 94 Nasal 4.0L Cannula 09/308 Nasal 4.0L Cannula 09/308 97.2 78 18 104/58 94 Nasal 4.0L Cannula 09/30 2232 84 22 104/54 92 Nasal 2.0L Cannula ED Intake and Output 10/01 0000 09/30 1200 Intake Total Output Total Balance Patient 290 lb Weight Allergies Coded Allergies: erythromycin base (From Erythrocin) (Severe, ANAPHYLACTIC 07/11/15) shellfish derived (Intermediate, SEVERE NAUSEA 09/30/16) Reconcile Medications Azelastine HCl 137 MCG (0.1 %) SPRAY.PUMP 2 SPRAY NASB BID ALLERGIES ( Reported) Clonazepam 0.5 MG TABLET 1 TAB PO DAILY RLS (Reported) Clopidogrel Bisulfate (Clopidogrel) 75 MG TABLET 1 TAB PO DAILY BLOOD THINNER (Reported) Dutasteride (Avodart) 0.5 MG CAPSULE 1 CAP PO DAILY PROSTATE (Reported) Etanercept (Enbrel) 50 MG/ML (0.98 ML) PEN.INJCTR 50 MG INJ QTUES RA ( Reported) Famotidine 40 MG TABLET 1 TAB PO BID GI (Reported) Fluticasone/Vilanterol (Breo Ellipta 100-25 Mcg INH) 100 MCG-25 MCG/DOSE BLST.W.DEV 1 PUFF PO DAILY BREATHING PROBLEMS (Reported) Folic Acid 1 MG TABLET 1 TAB PO DAILY SUPPLEMENT (Reported) Fondaparinux Sodium (Arixtra) 10 MG/0.8 ML SYRINGE 10 MG INJ QHS BLOOD THINNER (Reported) Melatonin 5 MG TABLET 5 MG PO AT BEDTIME PRN INSOMNIA Mometasone Furoate (Nasonex) 50 MCG SPRAY.PUMP 2 SPRAY NASB DAILY ALLERGIES ( Reported) Multivitamin (Multi-Day Vitamins) 1 EACH TABLET 1 TAB PO DAILY SUPPLEMENT ( Reported) Pravastatin Sodium (Pravachol) 80 MG TABLET 1 TAB PO QPM CHOLESTEROL ( Reported) Sertraline HCl 50 MG TABLET 1 TAB PO DAILY MENTAL HEALTH (Reported) Terazosin HCl 10 MG CAPSULE 2 CAP PO QHS PROSTATE (Reported) Tramadol HCl 50 MG TABLET 1 TAB PO TID PRN PAIN (Reported) Triage Nurses Notes Reviewed? yes HPI: Patient presents with a substernal squeezing sensation that radiates to both arms. The symptoms started approximately 15 minutes ago. Patient states it is been having these symptoms frequently over the past 2 days. The symptoms usually last for about 10 minutes and then go away. The symptoms come on regardless of activity. Patient states that he feels short of breath when he gets the symptoms. There is no nausea or vomiting. There is no diaphoresis. Patient rates the squeezing sensation at 8 out of 10. Past History Travel History Traveled to [place] past 21 day No Medical History Any Pertinent Medical History? 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 father and cousin (factor VIII disorder). Hx Contributory? No Review of Systems Review of Systems Constitutional: Reports: no symptoms. EENTM: Reports: no symptoms. Respiratory: Reports: no symptoms. Cardiovascular: Reports: see HPI, chest pain. GI: Reports: no symptoms. Genitourinary: Reports: no symptoms. Musculoskeletal: Reports: no symptoms. Skin: Reports: no symptoms. Neurological/Psychological: Reports: no symptoms. Hematologic/Endocrine: Reports: no symptoms. Immunologic/Allergic: Reports: no symptoms. All Other Systems: Reviewed and Negative Physical Exam Physical Exam General Appearance: well developed/nourished, alert, awake, anxious, moderate distress Head: atraumatic, normal appearance Eyes: Bilateral: PERRL, EOMI. Ears, Nose, Throat: normal pharynx, normal ENT inspection, hearing grossly normal Neck: normal inspection, supple, full range of motion Respiratory: normal breath sounds, chest non-tender, no respiratory distress, lungs clear Cardiovascular: regular rate/rhythm, normal peripheral pulses Gastrointestinal: normal bowel sounds, soft, non-tender Back: normal inspection, normal range of motion Extremities: normal inspection, normal capillary refill, normal range of motion, pedal edema Neurologic/Psych: no motor/sensory deficits, awake, alert, oriented x 3, normal mood/affect Skin: intact, normal color, warm/dry Lymphatic: no anterior cervical shaista Core Measures ACS in differential dx? Yes ASA ordered for poss ACS? Yes-ordered Severe Sepsis Present: No Septic Shock Present: No Progress Differential Diagnosis: AMI, cholecystitis, costochondritis, musculoskeletal pain, myocarditis, pericarditis, pneumonia, pneumothorax, pulmonary embolism, unstable angina Plan of Care: Orders Procedure Date/time Status TROPONIN LEVEL 10/01 0400 Active EKG 10/01 0400 Active Pathway - chart 09/30 2336 Active Pathway - chart 09/30 2305 Active Code Status 09/30 2305 Active Patient Data 09/30 2258 Active Intake & Output 09/[address] in observation 09/30 2247 Active Telemetry/Hydro Mechanic 09/30 220 Active TROPONIN LEVEL 09/30 2202 Complete PARTIAL THROMBOPLASTIN TIME 09/30 2201 Complete PROTHROMBIN TIME 09/30 2201 Complete COMPREHENSIVE METABOLIC PANEL 09/30 2201 Complete CBC WITHOUT DIFFERENTIAL 09/30 2201 Complete EKG 09/30 215 Active House Staff 09/30 UNK Active VTE Mechanical Prophylaxis 09/30 UNK Active Vital Signs 09/30 UNK Active Current Medications Sig/Nicola Start time Last Medication Dose Stop Time Status Admin Finasteride 5 MG DAILY 10/02 1000 AC (Proscar) Pravastatin Sodium 80 MG QPM 10/01 2200 AC (Pravachol) Clonazepam 0.5 MG DAILY 10/01 1000 AC (KlonoPIN) 10/08 0959 Clopidogrel Bisulfate 75 MG DAILY 10/01 1000 AC (Plavix) Doxazosin Mesylate 2 MG DAILY 10/01 1000 AC (Cardura) Sertraline HCl 50 MG DAILY 10/01 1000 AC (Zoloft) Acetaminophen 650 MG Q6 PRN 09/30 2344 AC (Tylenol) Morphine Sulfate 2 MG Q6 PRN 09/30 2344 AC (Morphine) Oxycodone HCl 5 MG Q6 PRN 09/30 2344 AC (Roxicodone) Laboratory Tests 09/30/165: Anion Gap 9, Estimated GFR > 60, BUN/Creatinine Ratio 17.8, Glucose 89, Calcium 9.4, Total Bilirubin 0.6, AST 25, ALT 44, Alkaline Phosphatase 52, Troponin I < 0.01, Total Protein 7.2, Albumin 4.0, Globulin 3.2, Albumin/Globulin Ratio 1.3, PT 12.5, INR 1.19 H, APTT 36, CBC w Diff NO MAN DIFF REQ, RBC 4.54 L, MCV 94.5 H, MCH 31.6 H, RDW 14.6 H, MPV 7.9, Gran % 55.3, Lymphocytes % 31.2, Monocytes % 10.5 H, Eosinophils % 2.4, Basophils % 0.6, Absolute Granulocytes 3.9, Absolute Lymphocytes 2.2, Absolute Monocytes 0.7 H, Absolute Eosinophils 0.2, Absolute Basophils 0, PUBS MCHC 33.4 Diagnostic Imaging: Viewed by Me: CT Scan. Discussed w/RAD: CT Scan. Radiology Impression: PATIENT: KRYSTAL BCUK PRESENT AGE: 61 PATIENT ACCOUNT NO: [id number] : 53 LOCATION: [facility] ORDERING PHYSICIAN: BLACK CARTER MD SERVICE DATE: 09/30/16 EXAM TYPE: CAT - CTA CHEST-PULMONARY EMBOLISM EXAMINATION: CT ANGIOGRAM OF THE CHEST WITH AND WITHOUT CONTRAST (CT PULMONARY ANGIOGRAM FOR PE) CLINICAL INFORMATION: CHEST PAIN AND DYSPNEA
COMPARISON: CTA of the chest 06/29/2015. TECHNIQUE: Prior to contrast administration, noncontrast localization images were obtained. Subsequently, multidetector volumetric imaging was performed from the thoracic inlet to below the diaphragms following the administration of 95 mL Optiray 320 intravenous contrast. No contrast reaction reported. Sagittal, coronal, and MIP oblique sagittal reformatted images were obtained on the CT workstation, uploaded to PACS, and reviewed. Total exam dose-length product 609.94 mGy-cm. FINDINGS: QUALITY OF STUDY/CONTRAST BOLUS: Satisfactory PULMONARY ARTERIES: No central or segmental pulmonary emboli. THORACIC AORTA: No aneurysm or dissection. LUNG: Bibasilar reticular opacities of scarring and/or subsegmental atelectasis. Asymmetric elevation of left diaphragm compared to the right. PLEURA: No pleural effusion or pneumothorax. MEDIASTINUM: Mild cardiomegaly. No pericardial effusion. No significant lymphadenopathy of the mediastinum or tuan. There is vascular calcification of the coronary arteries. Status post median sternotomy for CABG. No evidence of septal bowing or right heart strain. CHEST WALL/AXILLA: No axillary or internal mammary lymphadenopathy. OSSEOUS STRUCTURES : Degenerative change of the dorsal spine with endplate spurs. UPPER ABDOMEN: Status post splenectomy. Surgical sutures associated with the stomach. Large cortical cyst at the upper pole of both kidneys. Status post cholecystectomy. IMPRESSION: 1. No evidence of pulmonary embolism. 2. Bibasilar reticular opacities of scarring and interstitial smooth atelectasis at lung bases. VTE: negative DICTATED BY: CHINO HERNANDEZ MD DATE/TIME DICTATED:09/30/162333 COTTON INSPECTOR:VIGNESH DATE/TIME TRANSCRIBED:09/30/162333 CONFIDENTIAL, DO NOT COPY WITHOUT APPROPRIATE AUTHORIZATION. <Electronically signed in Other Vendor System> SIGNED BY: CHINO HERNANDEZ MD 09/30/162343 Initial ED EKG: NSR, RBBB, nonspecific ST T wave chg Prior EKG: unchanged Rhythm Strip: normal sinus rhythm Comments: No relief from SL nitroglycerin. Departure Departure Disposition: STILL A PATIENT Condition: Stable Clinical Impression Primary Impression: ACS (acute coronary syndrome) Referrals: RADHA URIOSTEGUI MD (PCP/Family) Departure Forms: Customer Survey General Discharge Information Observation Note Spoke With: RADHA URIOSTEGUI MD Physician Advisor Notified: RAUL VIZCAINO,BLACK [address] Patient In: Non-ED OBS Care Area Rationale for Observation: My rational for observation is as follows [cardiology consultation, serial enzymes, telemetry monitoring. Patient is at high risk. Patient is having crescendo angina with a known history of coronary disease.]. Critical Care Note Critical Care Note Critical Care Time: mins: (45 MIN)
[2016-09-30 22:19] LABS: ABSOLUTE BASOPHIL COUNT 0 /CUMM (0.0-0.2); ABSOLUTE EOSINOPHIL COUNT 0.2 /CUMM (0.0-0.7); ABSOLUTE GRANULOCYTE CT 3.9 /CUMM (1.4-6.5); ABSOLUTE LYMPH COUNT 2.2 /CUMM (1.2-3.4); ABSOLUTE MONOCYTE COUNT 0.7 /CUMM (0.10-0.60); BASOPHIL % 0.6 % (0.0-2.0); EOSINOPHIL % 2.4 % (0-5); MEAN CORPUSCULAR HGB 31.6 PG (27.0-31.0); MEAN CORPUSCULAR HGB CONC 33.4 G/DL (33.0-37.0); MEAN CORPUSCULAR VOLUME 94.5 FL (80.0-94.0); MEAN PLATELET VOLUME 7.9 FL (7.4-10.4); PLATELET COUNT 269 /CUMM (130-400); RBC DISTRIBUTION WIDTH 14.6 % (11.5-14.5); RED BLOOD CELL CT 4.54 /CUMM (4.70-6.10); WHITE BLOOD CELL COUNT 7.1 /CUMM (4.8-10.8)
[2016-09-30 22:20] LABS: GRANULOCYTE % 55.3 % (42.2-75.2)
[2016-09-30 22:24] LABS: PT 12.5 SEC (9.4-12.5); PTT 36 SEC (25-37)
[2016-09-30] MEDS ORDERED: ARIXTRA10 MG/0.8 INJ (22:30)
[2016-09-30] MEDS ORDERED: MULTI-DAY VITA1 EACH PO (22:31)
[2016-09-30] MEDS ORDERED: NASONEX17 GM NASB (22:31)
[2016-09-30] MEDS ORDERED: ENBREL50 MG/1 M1 INJ (22:34)
[2016-09-30] MEDS ORDERED: TRAMADOL HCL50 M1 PO (22:34)
--- NOTE | 2016-09-30 23:42 | History & Physical ---
JULIÁN VIZCAINO,KATHLEEN 09/30/16 1441: General Information and HPI MD Statement: I have seen and personally examined KRYSTAL BUCK and documented this H&P. The patient is a 61 year old M who presented with a patient stated chief complaint of [chest painchest pain]. 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 Pt states that he has 7/10 chest pressure with pain going down both shoulders and going up his jaw. He was going to bed in the evening and not doing any activity when he noted the pain. During the time of interview the pain was 5/ 10. Not reproducible to palaption. He has had a similar episode several years ago but has no significant work up per patient. Pt denies any headache, fever, rash, sore throat, palpitations, or diaphoresis. This AM he felt nauseous, denies any vomiting, diarrhea or constipation. No LE swelling. With exertion he endorsed no change in the chest pressure but his SOB worsened. He sees the following doctors: Dr. Fawad Yao for cardio, Dr. Joy for pulm, Dr. Pyle for rheum, Dr. Dubon PCP, and Dr. Collier urology. Allergies/Medications Allergies: Coded Allergies: erythromycin base (From Erythrocin) (Severe, ANAPHYLACTIC 07/11/15) shellfish derived (Intermediate, SEVERE NAUSEA 09/30/16) Home Med list Azelastine HCl 137 MCG (0.1 %) SPRAY.PUMP 2 SPRAY NASB BID ALLERGIES ( Reported) Clonazepam 0.5 MG TABLET 1 TAB PO DAILY RLS (Reported) Clopidogrel Bisulfate (Clopidogrel) 75 MG TABLET 1 TAB PO DAILY BLOOD THINNER (Reported) Dutasteride (Avodart) 0.5 MG CAPSULE 1 CAP PO DAILY PROSTATE (Reported) Etanercept (Enbrel) 50 MG/ML (0.98 ML) PEN.INJCTR 50 MG INJ QTUES RA ( Reported) Famotidine 40 MG TABLET 1 TAB PO BID GI (Reported) Fluticasone/Vilanterol (Breo Ellipta 100-25 Mcg INH) 100 MCG-25 MCG/DOSE BLST.W.DEV 1 PUFF PO DAILY BREATHING PROBLEMS (Reported) Folic Acid 1 MG TABLET 1 TAB PO DAILY SUPPLEMENT (Reported) Fondaparinux Sodium (Arixtra) 10 MG/0.8 ML SYRINGE 10 MG INJ QHS BLOOD THINNER (Reported) Melatonin 5 MG TABLET 5 MG PO AT BEDTIME PRN INSOMNIA Mometasone Furoate (Nasonex) 50 MCG SPRAY.PUMP 2 SPRAY NASB DAILY ALLERGIES ( Reported) Multivitamin (Multi-Day Vitamins) 1 EACH TABLET 1 TAB PO DAILY SUPPLEMENT ( Reported) Pravastatin Sodium (Pravachol) 80 MG TABLET 1 TAB PO QPM CHOLESTEROL ( Reported) Sertraline HCl 50 MG TABLET 1 TAB PO DAILY MENTAL HEALTH (Reported) Terazosin HCl 10 MG CAPSULE 2 CAP PO QHS PROSTATE (Reported) Tramadol HCl 50 MG TABLET 1 TAB PO TID PRN PAIN (Reported) Compliance With Home Meds: UNKNOWN Past History Travel History Traveled to [place] past 21 day No Medical History Neurological: CVA with residual right-sided weakness EENT: NONE Cardiovascular: CAD, hyperlipidemia, myocardial infarction, RBBB Respiratory: obstructive sleep apnea, pulmonary hypertension Gastrointestinal: GERD, hiatal hernia, BARIATRIC SURGERY Hepatic: cholecystitis Renal: NONE Musculoskeletal: rheumatoid arthritis Psychiatric: depression Endocrine: obesity Blood Disorders: DVT, PE, LOVENOX/ COUMADIN FAILURE Cancer(s): 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 father and cousin (factor VIII disorder). Psychosocial History Who Do You Live With? spouse Services at Home: None Functional Ability ADLs Independent: dressing, eating, toileting, bathing. Ambulation: independent IADLs Independent: shopping, housework, finances, food prep, telephone, transportation , medication admin. Review of Systems Review of Systems Constitutional: Reports: see HPI. Exam & Diagnostic Data Last 24 Hrs of Vital Signs/I&O Vital Signs Date Time Temp Pulse Resp B/P B/P Pulse O2 O2 Flow FiO2 Mean Ox Delivery Rate 10/01 0034 66 18 121/74 94 Nasal 4.0L Cannula 09/30 2257 Nasal 4.0L Cannula 09/30 2257 97.2 78 18 104/58 94 Nasal 4.0L Cannula 09/30 2232 84 22 104/54 92 Nasal 2.0L Cannula Intake & Output 10/01 0800 10/01 0000 09/30 1600 Intake Total Output Total Balance Patient 131.542 kg Weight Physical Exam General Appearance Alert, Oriented X3, Cooperative, No Acute Distress Skin No Significant Lesion HEENT Atraumatic, PERRLA, EOMI, Mucous Membr. moist/pink Neck Supple Cardiovascular Regular Rate, Normal S1, Normal S2, No Murmurs Lungs Normal Air Movement Abdomen Normal Bowel Sounds, Soft, No Tenderness Neurological has pre-existing facial droop Extremities No Edema Last 24 Hrs of Labs/Lester: Laboratory Tests 09/30/165: Anion Gap 9, Estimated GFR > 60, BUN/Creatinine Ratio 17.8, Glucose 89, Calcium 9.4, Total Bilirubin 0.6, AST 25, ALT 44, Alkaline Phosphatase 52, Troponin I < 0.01, Total Protein 7.2, Albumin 4.0, Globulin 3.2, Albumin/Globulin Ratio 1.3, PT 12.5, INR 1.19 H, APTT 36, CBC w Diff NO MAN DIFF REQ, RBC 4.54 L, MCV 94.5 H, MCH 31.6 H, RDW 14.6 H, MPV 7.9, Gran % 55.3, Lymphocytes % 31.2, Monocytes % 10.5 H, Eosinophils % 2.4, Basophils % 0.6, Absolute Granulocytes 3.9, Absolute Lymphocytes 2.2, Absolute Monocytes 0.7 H, Absolute Eosinophils 0.2, Absolute Basophils 0, PUBS MCHC 33.4 Assessment/Plan Assessment: This is a 60-year-old male past medical history significant for CAD, CVA, DVT and PE on Lovenox and Coumadin, hx of bariatric surgery, obesity, pulmonary hypertension, DERIK, who comes in for chief complaint of shortness of breath and chest pain. In ED patient was found to be satting 88% on room air. Upon 2 L NC he went up to 93%. Given his considerable cardiac history, the ongoing chest pain is of concern for ACS vs another pulmonary embolus. We will place pt in observation status to telemetry unit for further monitoring. Workup shows: Vitals: 97.2, 84, 22, 104/52 , 92; Iintially satting 88% placed on 2L O2 INR 1.19. CBC: White count 7.1, hemoglobin 14.4, hematocrit 48, platelet 269. BEP within normal limits Negative troponin. Negative CT for PE PLAN Chest pain: Patient has significant cardiac history with bypass. 07/12/2015 stress test showing no change with exercise. Echocardiogram in 06/11/2014 shows EF 55. * Monitor on telemetry * ACS rule out with EKG and troponin * Consider cardiology consult if work up significant * Continue pravastatin History of DVT/PE: Patient has factor V deficiency, family history of factor VIII disorder. He has had DVT and PE with Lovenox and Coumadin failure. CT PE this time negative. * Continue fondaparinux * Con't Plavix BPH: Chronic and stable * Continue dutasteride * Continue terazosin RLS/Anxiety/depression: Chronic and stable * Continue clonazepam * Continue melatonin * Continue sertraline Rheumatoid arthritis: Chronic and stable * Continue Etanercept-Last took on 09/30/2016; weekly injection * Continue tramadol FULL CODE HEARTHEATLHY DIET CHEMICAL DVT PPX As Ranked By This Provider Problem List: 1. Chest pain syndrome Core Measures/Miscellaneous Acute Coronary Syndrome ACS Diagnosis: No Cerebrovascular Accident CVA/TIA Diagnosis: No Congestive Heart Failure CHF Diagnosis: No Venous Thromboembolism VTE Risk Factors: Acute medical illness, Age > 40 [facility] prophylaxis d/t: No contraindications No VTE Pharm Prophylaxis d/t: No contraindications VTE Diagnosis: No VTE Type: NONE VTE Confirmed by (Test): NONE Severe Sepsis Severe Sepsis Present: No Septic Shock Septic Shock Present: No Miscellaneous Documentation Attending Case Discussed With: RADHA DUBON MD Primary Care Physician: RADHA DUBON MD Patient sees these Specialists unknown Level of Patient Care: Telemetry UL MARLENE VIZCAINO,VIELKA 10/01/16 0329: Resident Review Statement Resident Statement: examined this patient, discussed with paralegal internship, agreed with paralegal internship, reviewed EMR data (avail) Other Findings: 61-year-old male with past medical history significant for CABG 12 years ago, CVA, hyperlipidemia, right bundle branch block, obstructive sleep apnea, ? FACTOR V mutation, history of recurrent DVT and pulmonary embolism with Coumadin and Lovenox failure, currently on fondaparinux, rheumatoid arthritis on etanercept, obstructive sleep apnea on CPAP, came to emergency department with chief complaint of chest pain, pressure-like characteristic, pain score 7/10, radiating to both shoulders and jaw, starting tonight when he was going to his bed for sleep. Vitals in emergency department patient afebrile, no tachypnea, no tachycardia, systolic blood pressure 104-121 and diastolic 54-74, oxygen saturation of 90-94% on 4 L of nasal cannula. On examination patient was alert and oriented time person place not in any acute distress comfortably lying on the bed. S1 and S2 audible without any murmurs, overall clear lungs, benign abdominal examination and grossly intact neurologic examination other than the pre-existing facial droop, no bilateral lower extremity edema no JVD. Lab data showed no leukocytosis, no anemia, no significant electrolyte abnormality, troponins negative less than 0.01, INR of 1.19 EKG showed left axis deviation, heart rate of 100, old right bundle branch block, QTC of 473, no acute ST changes Patient's chest pain was not relieved from nitroglycerin. Patient felt better after receiving morphine in emergency department. Patient was admitted on telemetry floor for the management of following problems Rule out ACS Patient follows up with his feed manager Dr. Fawad Higgins. Patient also had his last stress nuclear echocardiogram, No EKG evidence of stress induced myocardial ischemia. Last echo in 2014 showed ejection fraction of 55-60%. Patient got ASA on ED. - Admit to telemetry - Vitals q Shift - Monitor I/O - Daily weight - Cardio consult - First troponin less than 0.01 follow-up the next troponin - Last Echo was done in 2014 - Consider repeat ECHO, consider patient's recurrent history of DVTs and pulmonary embolism to rule out right heart strain - Lipid panel was ordered recently in 08/18/2016 - Continue with fondaparinux - Continue with Plavix - Give dinner (Heart Healthy Diet) History of recurrent DVT and pulmonary embolism In the past medical history, heme consult mentioned about factor V mutation. Patient had Coumadin and Lovenox failure and currently on fondaparinux along with Plavix did not experience any DVT. Given patient's extensive history of pulmonary embolism CTA was obtained in emergency department and did not show any new clots. History of rheumatoid arthritis patient is currently on infliximab weekly on Tuesdays, please order if patient stays stated Thursday Patient is full code Patient is on heart healthy diet Patient is on pain pathway Patient is on fondaparinux for DVT prophylaxis
--- NOTE | 2016-09-30 23:44 | CT SCAN REPORT ---
EXAMINATION: CT ANGIOGRAM OF THE CHEST WITH AND WITHOUT CONTRAST (CT PULMONARY ANGIOGRAM FOR PE) CLINICAL INFORMATION: CHEST PAIN AND DYSPNEA
COMPARISON: CTA of the chest 06/29/2015. TECHNIQUE: Prior to contrast administration, noncontrast localization images were obtained. Subsequently, multidetector volumetric imaging was performed from the thoracic inlet to below the diaphragms following the administration of 95 mL Optiray 320 intravenous contrast. No contrast reaction reported. Sagittal, coronal, and MIP oblique sagittal reformatted images were obtained on the CT workstation, uploaded to PACS, and reviewed. Total exam dose-length product 609.94 mGy-cm. FINDINGS: QUALITY OF STUDY/CONTRAST BOLUS: Satisfactory PULMONARY ARTERIES: No central or segmental pulmonary emboli. THORACIC AORTA: No aneurysm or dissection. LUNG: Bibasilar reticular opacities of scarring and/or subsegmental atelectasis. Asymmetric elevation of left diaphragm compared to the right. PLEURA: No pleural effusion or pneumothorax. MEDIASTINUM: Mild cardiomegaly. No pericardial effusion. No significant lymphadenopathy of the mediastinum or tuan. There is vascular calcification of the coronary arteries. Status post median sternotomy for CABG. No evidence of septal bowing or right heart strain. CHEST WALL/AXILLA: No axillary or internal mammary lymphadenopathy. OSSEOUS STRUCTURES: Degenerative change of the dorsal spine with endplate spurs. UPPER ABDOMEN: Status post splenectomy. Surgical sutures associated with the stomach. Large cortical cyst at the upper pole of both kidneys. Status post cholecystectomy. IMPRESSION: 1. No evidence of pulmonary embolism. 2. Bibasilar reticular opacities of scarring and interstitial smooth atelectasis at lung bases. VTE: negative
--- NOTE | 2016-10-01 07:43 | PN- Housestaff ---
Subjective Follow-up For: Chest pain Subjective: Afebrile, hemodynamically stable, saturating well on room air. Patient is complaining of 5 out 10, substernal chest pain that radiated to both shoulders and to the left side of the neck. He denies shortness breath. Patient pain improved slightly with nitroglycerin. Review of Systems Constitutional: Reports: no symptoms, see HPI. Objective Last 24 Hrs of Vital Signs/I&O Vital Signs Date Time Temp Pulse Resp B/P B/P Pulse O2 O2 Flow FiO2 Mean Ox Delivery Rate 10/01 1258 95.4 74 22 113/72 93 Room Air 10/01 1012 77 18 116/68 99 Room Air 10/01 0915 85 20 116/71 98 Room Air 2.0L 10/01 0641 96.8 67 20 100/64 94 Nasal 2.0L Cannula 10/01 0406 64 18 112/62 94 Nasal 4.0L Cannula 10/01 0126 60 18 117/60 95 Nasal 4.0L Cannula 10/01 0034 66 18 121/74 94 Nasal 4.0L Cannula 09/30 2258 Nasal 4.0L Cannula 09/30 2258 97.2 78 18 104/58 94 Nasal 4.0L Cannula 09/30 2232 84 22 104/54 92 Nasal 2.0L Cannula Intake & Output 10/01 1600 10/01 0800 10/01 0000 Intake Total Output Total Balance Patient 131.542 kg Weight Physical Exam General Appearance: Alert, Oriented X3, Cooperative, No Acute Distress HEENT: Atraumatic, PERRLA, EOMI, Mucous Membr. moist/pink Cardiovascular: Regular Rate, Normal S1, Normal S2, No Murmurs Lungs: Clear to Auscultation, Normal Air Movement Abdomen: Normal Bowel Sounds, Soft, No Tenderness Neurological: Normal Gait, Normal Speech, Strength at 5/5 X4 Ext Extremities: No Clubbing, No Cyanosis, No Edema Current Medications: Current Medications Sig/Nicola Start time Last Medication Dose Route Stop Time Status Admin Acetaminophen 0 .STK-MED ONE 10/01 1112 DC IV Acetaminophen 1,000 MG ONCE ONE 10/01 1100 DC 10/01 N/A 1 UNIT IV 10/01 1114 1110 Acetaminophen 650 MG Q12 PRN 10/01 1050 AC PO Acetaminophen 0 .STK-MED ONE 10/01 0452 DC PO Acetaminophen 650 MG Q6 PRN 09/30 2345 DC 10/01 PO 0448 Aspirin 0 .STK-MED ONE 09/30 2218 DC PO Aspirin 325 MG ONCE ONE 09/30 2215 DC 09/30 PO 09/30 2216 2215 Budesonide/ 2 PUF BID 10/01 1000 AC 10/01 Formoterol Fumarate INH 0844 Clonazepam 0.5 MG DAILY 10/01 1000 AC PO 10/08 0959 Clonazepam 0 .STK-MED ONE 10/01 0811 DC PO Clopidogrel Bisulfate 75 MG DAILY 10/01 1000 AC 10/01 PO 0844 Doxazosin Mesylate 2 MG DAILY 10/01 1000 AC 10/01 PO 0843 Famotidine 40 MG BID 10/01 1000 AC 10/01 PO 0843 Finasteride 5 MG DAILY 10/02 1000 AC PO Fondaparinux 10 MG AT BEDTIME 10/01 2200 AC SC Hydromorphone HCl 0 .STK-MED ONE 10/01 0126 DC .ROUTE Hydromorphone HCl 1 MG ONCE ONE 10/01 0115 DC 10/01 IV 10/01 0116 0124 Hydromorphone HCl 0 .STK-MED ONE 09/30 2337 DC .ROUTE Hydromorphone HCl 1 MG ONCE ONE 09/30 2330 DC 09/30 IV 09/30 2331 2334 Melatonin 5 MG AT BEDTIME PRN 10/01 0415 AC PO Morphine Sulfate 0 .STK-MED ONE 10/01 0935 DC .ROUTE Morphine Sulfate 2 MG Q6 PRN 09/30 2345 AC 10/01 IV 0933 Morphine Sulfate 4 MG ONCE ONE 09/30 2245 DC 09/30 IV 09/30 2246 2240 Morphine Sulfate 0 .STK-MED ONE 09/30 2241 DC .ROUTE Nitroglycerin 0 .STK-MED ONE 10/01 0919 DC SL Nitroglycerin 0.4 MG ONCE ONE 10/01 0915 DC 10/01 SL 10/01 0916 0918 Nitroglycerin 0 .STK-MED ONE 09/30 2218 DC SL Nitroglycerin 0.4 MG ONCE ONE 09/30 2215 DC 09/30 SL 09/30 2216 2215 Ondansetron HCl 4 MG ONCE ONE 09/30 2300 DC 09/30 IV 09/30 2301 2311 Ondansetron HCl 0 .STK-MED ONE 09/307 DC .ROUTE Oxycodone HCl 5 MG Q6 PRN 09/30 2345 AC PO Pravastatin Sodium 80 MG QPM 10/01 2200 AC PO Sertraline HCl 50 MG DAILY 10/01 1000 AC 10/01 PO 0844 Last 24 Hrs of Lab/Lester Results Last 24 Hrs of Labs/Mics: Laboratory Tests 10/01/16 0923: Troponin I < 0.01 10/01/16 0405: Troponin I < 0.01 09/30/162204: Anion Gap 9, Estimated GFR > 60, BUN/Creatinine Ratio 17.8, Glucose 89, Calcium 9.4, Total Bilirubin 0.6, AST 25, ALT 44, Alkaline Phosphatase 52, Troponin I < 0.01, Total Protein 7.2, Albumin 4.0, Globulin 3.2, Albumin/Globulin Ratio 1.3, PT 12.5, INR 1.19 H, APTT 36, CBC w Diff NO MAN DIFF REQ, RBC 4.54 L, MCV 94.5 H, MCH 31.6 H, RDW 14.6 H, MPV 7.9, Gran % 55.3, Lymphocytes % 31.2, Monocytes % 10.5 H, Eosinophils % 2.4, Basophils % 0.6, Absolute Granulocytes 3.9, Absolute Lymphocytes 2.2, Absolute Monocytes 0.7 H, Absolute Eosinophils 0.2, Absolute Basophils 0, PUBS MCHC 33.4 Assessment/Plan Assessment: This is a 60-year-old male past medical history significant for CAD, CVA, DVT and PE on Lovenox and Coumadin, hx of bariatric surgery, obesity, pulmonary hypertension, DERIK, who comes in for chief complaint of shortness of breath and chest pain. In ED patient was found to be satting 88% on room air. Upon 2 L NC he went up to 93%. Given his considerable cardiac history, the ongoing chest pain is of concern for ACS vs another pulmonary embolus. We will place pt in observation status to telemetry unit for further monitoring. PLAN Chest pain: Patient has significant cardiac history with bypass. 07/12/2015 stress test showing no change with exercise. Echocardiogram in 06/11/2014 shows EF 55. EKG and troponin did not show any acute changes, however patient continue to complain of chest pain. * We'll manage pain nitroglycerin paste to the regimen for now. * Continue pravastatin * EKG with any episodes of chest pain * Echocardiogram pending * Patient will may transfer for cardiac cath later today. History of DVT/PE: Patient has factor V deficiency, family history of factor VIII disorder. He has had DVT and PE with Lovenox and Coumadin failure. CT PE this time negative. * Continue fondaparinux * Con't Plavix BPH: Chronic and stable * Continue dutasteride * Continue terazosin RLS/Anxiety/depression: Chronic and stable * Continue clonazepam * Continue melatonin * Continue sertraline Rheumatoid arthritis: Chronic and stable * Continue Etanercept-Last took on 09/30/2016; weekly injection * Continue tramadol FULL CODE HEARTHEATLHY DIET CHEMICAL DVT PPX Problem List: 1. ACS (acute coronary syndrome) Pain Ratin Pain Location: chest Pain Goal: Remain pain free Pain Plan: See A&P Tomorrow's Labs & Rationales: See A&P
--- NOTE | 2016-10-01 12:13 | Patient Discharge Instructions ---
Discharge Instructions General Discharge Information You were seen/treated for: Chest pain Special Instructions: Please follow up with cardiology and PCP Diet Continue normal diet: Yes Recommended Diet: Heart Healthy Activity Full Activity/No Limits: Yes Activity Self Limited: No Acute Coronary Syndrome Inclusion Criteria At DC or during hospital stay patient has or had the following: ACS DIAGNOSIS Yes Discharge Core Measures Meds if any: Prescribed or Continued at Discharge Meds if any: NOT Prescribed or Continued at Discharge Congestive Heart Failure Inclusion Criteria At DC or during hospital stay patient has or had the following: CHF DIAGNOSIS No Discharge Core Measures Meds if any: Prescribed or Continued at Discharge Meds if any: NOT Prescribed or Continued at Discharge Cerebrovascular accident Inclusion Criteria At DC or during hospital stay patient has or had the following: CVA/TIA Diagnosis No Discharge Core Measures Meds if any: Prescribed or Continued at Discharge Meds if any: NOT Prescribed or Continued at Discharge Venous thromboembolism Inclusion Criteria VTE Diagnosis No VTE Type NONE VTE Confirmed by (Test) NONE Discharge Core Measures - Per Current guidelines, there needs to be overlap - treatment for the first 5 days of Warfarin therapy. - If discharged on Warfarin prior to 5 days of - overlap therapy, the patient will need to be - assessed for post discharge needs including - *Post discharge parental anticoagulation - *Warfarin and/or parental anticoagulation education - *Follow up date to check INR post discharge At least 5 days overlap therapy as Inpatient No Meds if any: Prescribed or Continued at Discharge Note: Overlap Therapy is Warfarin and Anticoagulant Meds if any: NOT Prescribed or Continued at Discharge
--- NOTE | 2016-10-01 12:27 | Discharge Summary ---
See Addendum Visit Information Visit Dates Admission Date: 09/30/16 Discharge Date: 10/01/2016 Hospital Course Course Attending Physician: RADHA URIOSTEGUI MD Primary Care Physician: RADHA URIOSTEGUI MD Consulting Request: Consulting Specialty: Cardiology Hospital Course: 61-year-old male with past medical history significant for CABG 12 years ago, CVA, hyperlipidemia, right bundle branch block, obstructive sleep apnea, ? FACTOR V mutation, history of recurrent DVT and pulmonary embolism with Coumadin and Lovenox failure, currently on fondaparinux, rheumatoid arthritis on etanercept, obstructive sleep apnea on CPAP, came to emergency department with chief complaint of chest pain, pressure-like characteristic, pain score 7/10, radiating to both shoulders and jaw, starting tonight when he was going to his bed for sleep. Vitals in emergency department patient afebrile, no tachypnea, no tachycardia, systolic blood pressure 104-121 and diastolic 54-74, oxygen saturation of 90-94% on 4 L of nasal cannula. On examination patient was alert and oriented time person place not in any acute distress comfortably lying on the bed. S1 and S2 audible without any murmurs, overall clear lungs, benign abdominal examination and grossly intact neurologic examination other than the pre-existing facial droop, no bilateral lower extremity edema no JVD. Lab data showed no leukocytosis, no anemia, no significant electrolyte abnormality, troponins negative less than 0.01, INR of 1.19 EKG showed left axis deviation, heart rate of 100, old right bundle branch block, QTC of 473, no acute ST changes Patient's chest pain was not relieved from nitroglycerin. Patient felt better after receiving morphine in emergency department. Plan was to keep patient in observation for 24 hours. During his hospital stay patient . Instructed intermittent chest pain 5 out of 10 radiating to neck and both jaws which was not relieved with nitroglycerin significantly. Patient was provided with when necessary nitroglycerin along with morphine for pain relief. 3 sets of troponins were negative along with no significant changes in EKGs as compared to previous EKGs. Patient was seen by cardiology and decision was made to transfer patient for cardiac catheterization given his significant cardiac history and chest pain which is suspicious for underlying cardiac in etiology. Complications: none Allergies: Coded Allergies: erythromycin base (From Erythrocin) (Severe, ANAPHYLACTIC 03/09/16) shellfish derived (Intermediate, SEVERE NAUSEA 09/30/16) Significant Procedures: SERVICE DATE: 09/30/16 EXAM TYPE: CAT - CTA CHEST-PULMONARY EMBOLISM EXAMINATION: CT ANGIOGRAM OF THE CHEST WITH AND WITHOUT CONTRAST (CT PULMONARY ANGIOGRAM FOR PE) CLINICAL INFORMATION: CHEST PAIN AND DYSPNEA
COMPARISON: CTA of the chest 06/29/2015. TECHNIQUE: Prior to contrast administration, noncontrast localization images were obtained. Subsequently, multidetector volumetric imaging was performed from the thoracic inlet to below the diaphragms following the administration of 95 mL Optiray 320 intravenous contrast. No contrast reaction reported. Sagittal, coronal, and MIP oblique sagittal reformatted images were obtained on the CT workstation, uploaded to PACS, and reviewed. Total exam dose-length product 609.94 mGy-cm. FINDINGS: QUALITY OF STUDY/CONTRAST BOLUS: Satisfactory PULMONARY ARTERIES: No central or segmental pulmonary emboli. THORACIC AORTA: No aneurysm or dissection. LUNG: Bibasilar reticular opacities of scarring and/or subsegmental atelectasis. Asymmetric elevation of left diaphragm compared to the right. PLEURA: No pleural effusion or pneumothorax. MEDIASTINUM: Mild cardiomegaly. No pericardial effusion. No significant lymphadenopathy of the mediastinum or tuan. There is vascular calcification of the coronary arteries. Status post median sternotomy for CABG. No evidence of septal bowing or right heart strain. CHEST WALL/AXILLA: No axillary or internal mammary lymphadenopathy. OSSEOUS STRUCTURES: Degenerative change of the dorsal spine with endplate spurs. UPPER ABDOMEN: Status post splenectomy. Surgical sutures associated with the stomach. Large cortical cyst at the upper pole of both kidneys. Status post cholecystectomy. IMPRESSION: 1. No evidence of pulmonary embolism. 2. Bibasilar reticular opacities of scarring and interstitial smooth atelectasis at lung bases. VTE: negative Disposition Summary Disposition Principal Diagnosis: chest pain to rule out acute coronary syndrome Unstable angina Additional Diagnosis: Hyperlipidemia Factor V Leiden mutation with DVT and PE on fondaparinux Discharge Disposition: other general hospital Discharge Instructions General Discharge Information Code Status: Full Code Patient's Diet: Nothing by mouth for cardiac catheterization Patient's Activity: As tolerated Follow-Up Instructions/Appts: Please follow-up with your primary care physician in one week of discharge Please follow-up with your double end tenon operator in 1 week of discharge Please take medications as prescribed Medications at Discharge Discharge Medications: Continue taking these medications: Clopidogrel Bisulfate (Clopidogrel) 75 MG TABLET 1 Tablet ORAL DAILY Folic Acid (Folic Acid) 1 MG TABLET 1 Tablet ORAL DAILY Famotidine (Famotidine) 40 MG TABLET 1 Tablet ORAL TWICE DAILY Comments: Last Taken: 05/22/16 Time: 9:30 AM Sertraline HCl (Sertraline HCl) 50 MG TABLET 1 Tablet ORAL DAILY Pravastatin Sodium (Pravachol) 80 MG TABLET 1 Tablet ORAL Every night Terazosin HCl (Terazosin HCl) 10 MG CAPSULE 2 Capsule ORAL TAKE AT BEDTIME Clonazepam (Clonazepam) 0.5 MG TABLET 1 Tablet ORAL DAILY Azelastine HCl (Azelastine HCl) 137 MCG (0.1 %) SPRAY.PUMP 2 [place] Both sides of nose TWICE DAILY Dutasteride (Avodart) 0.5 MG CAPSULE 1 Capsule ORAL DAILY Fluticasone/Vilanterol (Breo Ellipta 100-25 Mcg INH) 100 MCG-25 MCG/DOSE BLST.W.DEV 1 PUFF ORAL DAILY Qty = 180 Comments: NOT GIVEN IN HOSPITAL Melatonin (Melatonin) 5 MG TABLET 5 Milligram ORAL AT BEDTIME as needed for INSOMNIA Days = 30 Comments: Last Taken: 05/21/16 Time: 11:30 PM Fondaparinux Sodium (Arixtra) 10 MG/0.8 ML SYRINGE 10 Milligram INJECTABLE TAKE AT BEDTIME Mometasone Furoate (Nasonex) 50 MCG SPRAY.PUMP 2 [place] Both sides of nose DAILY Multivitamin (Multi-Day Vitamins) 1 EACH TABLET 1 Tablet ORAL DAILY Etanercept (Enbrel) 50 MG/ML (0.98 ML) PEN.INJCTR 50 Milligram INJECTABLE EVERY THURSDAY Qty = 4 Tramadol HCl (Tramadol HCl) 50 MG TABLET 1 Tablet ORAL THREE TIMES DAILY as needed for PAIN Qty = 90 Copies To: RADHA URIOSTEGUI MD Attending MD Review Statement Documenting Attending: RADHA URIOSTEGUI MD
[2016-10-01 12:58] VITALS: BP 113/72
--- NOTE | 2016-10-01 13:06 | Cons- Cardiology ---
General Information and HPI Consulting Request Date of Consult: 10/01/16 Requested By: RADHA URIOSTEGUI MD Reason for Consult: Recurrent episodes of chest discomfort; possible unstable angina Source of Information: patient, family, old records History of Present Illness: The patient is a 61-year-old male with a, Caitlin medical history. He has been seen by me in the past but his usual medical research scientist is Dr. Fawad Miller in [place]. The patient is now admitted to the hospital via the emergency him with recurrent episodes of chest discomfort. The patient describes the episodes as central chest discomfort/pressure with radiation to the shoulders, down both arms and to the neck and jaw. On his initial arrival to the emergency him, the symptoms were significantly improved after nitroglycerin. The patient had a subsequent episode or symptoms at rest occurring at 4 AM and has since had one more episode occurring at 9 AM wall lying in bed. Usually the episodes did show some response to nitroglycerin and was ultimately relieved by morphine sulfate. Prior to the last 48 hours, the patient denies any other symptoms. He does note that these are similar to the symptoms when he had his heart attack 12 years ago but not exactly the same. Allergies/Medications Allergies: Coded Allergies: erythromycin base (From Erythrocin) (Severe, ANAPHYLACTIC 07/11/15) shellfish derived (Intermediate, SEVERE NAUSEA 09/30/16) Home Med List: Azelastine HCl 137 MCG (0.1 %) SPRAY.PUMP 2 SPRAY NASB BID ALLERGIES ( Reported) Clonazepam 0.5 MG TABLET 1 TAB PO DAILY RLS (Reported) Clopidogrel Bisulfate (Clopidogrel) 75 MG TABLET 1 TAB PO DAILY BLOOD THINNER (Reported) Dutasteride (Avodart) 0.5 MG CAPSULE 1 CAP PO DAILY PROSTATE (Reported) Etanercept (Enbrel) 50 MG/ML (0.98 ML) PEN.INJCTR 50 MG INJ QTUES RA ( Reported) Famotidine 40 MG TABLET 1 TAB PO BID GI (Reported) Fluticasone/Vilanterol (Breo Ellipta 100-25 Mcg INH) 100 MCG-25 MCG/DOSE BLST.W.DEV 1 PUFF PO DAILY BREATHING PROBLEMS (Reported) Folic Acid 1 MG TABLET 1 TAB PO DAILY SUPPLEMENT (Reported) Fondaparinux Sodium (Arixtra) 10 MG/0.8 ML SYRINGE 10 MG INJ QHS BLOOD THINNER (Reported) Melatonin 5 MG TABLET 5 MG PO AT BEDTIME PRN INSOMNIA Mometasone Furoate (Nasonex) 50 MCG SPRAY.PUMP 2 SPRAY NASB DAILY ALLERGIES ( Reported) Multivitamin (Multi-Day Vitamins) 1 EACH TABLET 1 TAB PO DAILY SUPPLEMENT ( Reported) Pravastatin Sodium (Pravachol) 80 MG TABLET 1 TAB PO QPM CHOLESTEROL ( Reported) Sertraline HCl 50 MG TABLET 1 TAB PO DAILY MENTAL HEALTH (Reported) Terazosin HCl 10 MG CAPSULE 2 CAP PO QHS PROSTATE (Reported) Tramadol HCl 50 MG TABLET 1 TAB PO TID PRN PAIN (Reported) Current Medications: Current Medications Sig/Nicola Start time Last Medication Dose Route Stop Time Status Admin Acetaminophen 0 .STK-MED ONE 10/01 1112 DC IV Acetaminophen 1,000 MG ONCE ONE 10/01 1100 DC 10/01 N/A 1 UNIT IV 10/01 1114 1110 Acetaminophen 650 MG Q12 PRN 10/01 1050 AC PO Acetaminophen 0 .STK-MED ONE 10/01 0452 DC PO Acetaminophen 650 MG Q6 PRN 09/30 2345 DC 10/01 PO 0448 Aspirin 0 .STK-MED ONE 09/30 2218 DC PO Aspirin 325 MG ONCE ONE 09/30 2215 DC 09/30 PO 09/30 2216 2215 Budesonide/ 2 PUF BID 10/01 1000 AC 10/01 Formoterol Fumarate INH 0844 Clonazepam 0.5 MG DAILY 10/01 1000 AC PO 10/08 0959 Clonazepam 0 .STK-MED ONE 10/01 0811 DC PO Clopidogrel Bisulfate 75 MG DAILY 10/01 1000 AC 10/01 PO 0844 Doxazosin Mesylate 2 MG DAILY 10/01 1000 AC 10/01 PO 0843 Famotidine 40 MG BID 10/01 1000 AC 10/01 PO 0843 Finasteride 5 MG DAILY 10/02 1000 AC PO Fondaparinux 10 MG AT BEDTIME 10/01 2200 AC SC Hydromorphone HCl 0 .STK-MED ONE 10/01 0126 DC .ROUTE Hydromorphone HCl 1 MG ONCE ONE 10/01 0115 DC 10/01 IV 10/01 0116 0124 Hydromorphone HCl 0 .STK-MED ONE 09/30 2337 DC .ROUTE Hydromorphone HCl 1 MG ONCE ONE 09/30 2330 DC 09/30 IV 09/30 2331 2334 Melatonin 5 MG AT BEDTIME PRN 10/01 0415 AC PO Morphine Sulfate 0 .STK-MED ONE 10/01 0935 DC .ROUTE Morphine Sulfate 2 MG Q6 PRN 09/30 2345 AC 10/01 IV 0933 Morphine Sulfate 4 MG ONCE ONE 09/30 2245 DC 09/30 IV 09/30 2246 2240 Morphine Sulfate 0 .STK-MED ONE 09/30 2241 DC .ROUTE Nitroglycerin 0 .STK-MED ONE 10/01 0919 DC SL Nitroglycerin 0.4 MG ONCE ONE 10/01 0915 DC 10/01 SL 10/01 0916 0918 Nitroglycerin 0 .STK-MED ONE 09/30 2218 DC SL Nitroglycerin 0.4 MG ONCE ONE 09/30 2215 DC 09/30 SL 09/30 2216 2215 Ondansetron HCl 4 MG ONCE ONE 09/30 2300 DC 09/30 IV 09/30 2301 2311 Ondansetron HCl 0 .STK-MED ONE 09/30 2257 DC .ROUTE Oxycodone HCl 5 MG Q6 PRN 09/30 2345 AC PO Pravastatin Sodium 80 MG QPM 10/01 2200 AC PO Sertraline HCl 50 MG DAILY 10/01 1000 AC 10/01 PO 0844 Past History Travel History Traveled to [place] past 21 day No Medical History Neurological: CVA with residual right-sided weakness EENT: NONE Cardiovascular: CAD, hyperlipidemia, myocardial infarction, RBBB Respiratory: obstructive sleep apnea, pulmonary hypertension Gastrointestinal: GERD, hiatal hernia, BARIATRIC SURGERY Hepatic: cholecystitis Renal: NONE Musculoskeletal: rheumatoid arthritis Psychiatric: depression Endocrine: obesity Blood Disorders: DVT, PE, LOVENOX/ COUMADIN FAILURE Cancer(s): NONE 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 father and cousin (factor VIII disorder). Psychosocial History Who Do You Live With? spouse Services at Home: None ETOH Use: denies use Illicit Drug Use: denies illicit drug use Functional Ability ADLs Independent: dressing, eating, toileting, bathing. Ambulation: independent IADLs Independent: shopping, housework, finances, food prep, telephone, transportation , medication admin. Exam & Diagnostic Data Vital Signs and I&O Vital Signs Date Time Temp Pulse Resp B/P B/P Pulse O2 O2 Flow FiO2 Mean Ox Delivery Rate 10/01 1258 95.4 74 22 113/72 93 Room Air 10/01 1012 77 18 116/68 99 Room Air 10/01 0915 85 20 116/71 98 Room Air 2.0L 10/01 0641 96.8 67 20 100/64 94 Nasal 2.0L Cannula 10/01 0406 64 18 112/62 94 Nasal 4.0L Cannula 10/01 0126 60 18 117/60 95 Nasal 4.0L Cannula 10/01 0034 66 18 121/74 94 Nasal 4.0L Cannula 09/30 2258 Nasal 4.0L Cannula 09/30 2258 97.2 78 18 104/58 94 Nasal 4.0L Cannula 09/30 2232 84 22 104/54 92 Nasal 2.0L Cannula Intake & Output 10/01 1600 10/01 0800 10/01 0000 09/30 1600 09/30 0800 09/30 0000 Intake Total Output Total Balance Patient 290 lb Weight Physical Exam: General Appearance Alert, Oriented X3, Cooperative, No Acute Distress Skin No Significant Lesion HEENT Atraumatic, PERRLA, EOMI, Mucous Membr. moist/pink Neck Supple, JVP normal, carotid shows normal bilaterally Cardiovascular Regular Rate, Normal S1, Normal S2, 1/6 systolic murmur left sternal border, Lungs Normal Air Movement Abdomen Normal Bowel Sounds, Soft, No Tenderness Neurological has pre-existing facial droop Extremities No Edema Labs/Lester Results: Laboratory Tests 10/01 10/01 09/30 0923 0405 2205 Chemistry Sodium (137 - 145 mmol/L) 138 Potassium (3.5 - 5.1 mmol/L) 3.9 Chloride (98 - 107 mmol/L) 106 Carbon Dioxide (22 - 30 mmol/L) 23 Anion Gap (5 - 16) 9 BUN (9 - 20 mg/dL) 16 Creatinine (0.7 - 1.2 mg/dL) 0.9 Estimated GFR (>60 ml/min) > 60 BUN/Creatinine Ratio (7 - 25 %) 17.8 Glucose (65 - 99 mg/dL) 89 Calcium (8.4 - 10.2 mg/dL) 9.4 Total Bilirubin (0.2 - 1.3 mg/dL) 0.6 AST (17 - 59 U/L) 25 ALT (21 - 72 U/L) 44 Alkaline Phosphatase (< 127 U/L) 52 Troponin I (<0.11 ng/ml) < 0.01 < 0.01 < 0.01 Total Protein (6.3 - 8.2 g/dL) 7.2 Albumin (3.5 - 5.0 g/dL) 4.0 Globulin (1.9 - 4.2 gm/dL) 3.2 Albumin/Globulin Ratio (1.1 - 2.2 %) 1.3 Coagulation PT (9.4 - 12.5 SEC) 12.5 INR (0.90 - 1.17) 1.19 H APTT (25 - 37 SEC) 36 Hematology CBC w Diff NO MAN DIFF REQ WBC (4.8 - 10.8 /CUMM) 7.1 RBC (4.70 - 6.10 /CUMM) 4.54 L Hgb (14.0 - 18.0 G/DL) 14.4 Hct (42 - 52 %) 43.0 MCV (80.0 - 94.0 FL) 94.5 H MCH (27.0 - 31.0 PG) 31.6 H RDW (11.5 - 14.5 %) 14.6 H Plt Count (130 - 400 /CUMM) 269 MPV (7.4 - 10.4 FL) 7.9 Gran % (42.2 - 75.2 %) 55.3 Lymphocytes % (20.5 - 51.1 %) 31.2 Monocytes % (1.7 - 9.3 %) 10.5 H Eosinophils % (0 - 5 %) 2.4 Basophils % (0.0 - 2.0 %) 0.6 Absolute Granulocytes (1.4 - 6.5 /CUMM) 3.9 Absolute Lymphocytes (1.2 - 3.4 /CUMM) 2.2 Absolute Monocytes (0.10 - 0.60 /CUMM) 0.7 H Absolute Eosinophils (0.0 - 0.7 /CUMM) 0.2 Absolute Basophils (0.0 - 0.2 /CUMM) 0 PUBS MCHC (33.0 - 37.0 G/DL) 33.4 Diagnostic Data EKG Results ECG 3 performed. Also sinus rhythm with right bundle-branch block and associated ST-T changes unchanged from the prior ECGs. Other Results CTA chest: IMPRESSION: 1. No evidence of pulmonary embolism. 2. Bibasilar reticular opacities of scarring and interstitial smooth atelectasis at lung bases. Assessment/Plan Assessment/Plan Assessment: 1. Recurrent episodes of chest discomfort-rule out acute coronary syndrome-the patient's symptoms are suggestive of myocardial ischemia with central chest discomfort radiating to the shoulders down both arms and to the neck and jaw. He has had at least 3 episodes of symptoms at rest. He denies any symptoms prior to the last 24 hours. His CTA of the chest and left lower 70 venous ultrasound been negative. His serial ECGs and troponins have been negative. In spite of the aforementioned negative test results, the patient's symptoms are concerning and there is no obvious cause. In view of his history of coronary disease and prior bypass surgery 12 years ago, I would consider cardiac catheterization to define his coronary anatomy. I have discussed the case with Dr. Fawad Blanton in [place]. He agrees. The patient will be transferred to [place] later today or tomorrow for heart catheterization. If the patient's coronary arteries proved to be normal, then further evaluation for other issues such as GI etiology, etc. will need to be entertained. 2. History of coronary disease, status post bypass surgery 3. History of DVT/pulmonary embolus-on anticoagulant therapy 4. History of factor V Leyden coagulopathy 5. Hyperlipidemia 6. Obstructive sleep apnea Recommendations: -Keep the patient nothing by mouth for now -Transfer to [place] for possible cardiac catheterization later today or tomorrow -Continue current medication regimen for now. -Add nitroglycerin paste to the regimen for now. -Please check ECG with any episodes of chest discomfort. -Echocardiogram pending Consult Acknowledgment - Thank you for your consult request.
--- NOTE | 2016-10-01 15:20 | PN- Att Addend ---
Attending Addendum Attending Brief Note 61-year-old white male with several comorbidities has been having this funny chest pain that comes suddenly even at rest radiates to the shoulders into the neck once he woke him up her comes to the ER for evaluation had serial EKGs and serial troponins ponies were negative repeat no acute EKG changes and it was seen today by our therapist phys Dr. Arcos or the patient has his therapist phys to [place]. After evaluation and Dr. Arcos had an echocardiogram. Dr. Arcos contacted his therapist phys to [place] was decided was best for the patient to be transferred to the [facility] for further evaluation and cardiac catheterization to rule out any acute cardiac abnormalities Laboratory Tests 10/01 10/01 09/30 0923 0405 2205 Chemistry Sodium (137 - 145 mmol/L) 138 Potassium (3.5 - 5.1 mmol/L) 3.9 Chloride (98 - 107 mmol/L) 106 Carbon Dioxide (22 - 30 mmol/L) 23 Anion Gap (5 - 16) 9 BUN (9 - 20 mg/dL) 16 Creatinine (0.7 - 1.2 mg/dL) 0.9 Estimated GFR (>60 ml/min) > 60 BUN/Creatinine Ratio (7 - 25 %) 17.8 Glucose (65 - 99 mg/dL) 89 Calcium (8.4 - 10.2 mg/dL) 9.4 Total Bilirubin (0.2 - 1.3 mg/dL) 0.6 AST (17 - 59 U/L) 25 ALT (21 - 72 U/L) 44 Alkaline Phosphatase (< 127 U/L) 52 Troponin I (<0.11 ng/ml) < 0.01 < 0.01 < 0.01 Total Protein (6.3 - 8.2 g/dL) 7.2 Albumin (3.5 - 5.0 g/dL) 4.0 Globulin (1.9 - 4.2 gm/dL) 3.2 Albumin/Globulin Ratio (1.1 - 2.2 %) 1.3 Coagulation PT (9.4 - 12.5 SEC) 12.5 INR (0.90 - 1.17) 1.19 H APTT (25 - 37 SEC) 36 Hematology CBC w Diff NO MAN DIFF REQ WBC (4.8 - 10.8 /CUMM) 7.1 RBC (4.70 - 6.10 /CUMM) 4.54 L Hgb (14.0 - 18.0 G/DL) 14.4 Hct (42 - 52 %) 43.0 MCV (80.0 - 94.0 FL) 94.5 H MCH (27.0 - 31.0 PG) 31.6 H RDW (11.5 - 14.5 %) 14.6 H Plt Count (130 - 400 /CUMM) 269 MPV (7.4 - 10.4 FL) 7.9 Gran % (42.2 - 75.2 %) 55.3 Lymphocytes % (20.5 - 51.1 %) 31.2 Monocytes % (1.7 - 9.3 %) 10.5 H Eosinophils % (0 - 5 %) 2.4 Basophils % (0.0 - 2.0 %) 0.6 Absolute Granulocytes (1.4 - 6.5 /CUMM) 3.9 Absolute Lymphocytes (1.2 - 3.4 /CUMM) 2.2 Absolute Monocytes (0.10 - 0.60 /CUMM) 0.7 H Absolute Eosinophils (0.0 - 0.7 /CUMM) 0.2 Absolute Basophils (0.0 - 0.2 /CUMM) 0 PUBS MCHC (33.0 - 37.0 G/DL) 33.4
== END 2016-10-01 13:45 | disposition short-term general hospital (02) ==
LOC: ERH 21:51 → ERHI 22:47 → CANRESERV 23:29 → CANBEDREQ 10-01 12:56 → ERHI 10-01 13:32
PROVIDERS: Emergency Medicine; ADMIT Internal Medicine
DX: I25.700 Atherosclerosis of coronary artery bypass graft(s), unspecified, with unstable angina pectoris (principal); I69.351 Hemiplegia and hemiparesis following cerebral infarction affecting right dominant side; I10 Essential (primary) hypertension; I25.2 Old myocardial infarction; E78.5 Hyperlipidemia, unspecified; I45.10 Unspecified right bundle-branch block; F32.9 Major depressive disorder, single episode, unspecified; M06.9 Rheumatoid arthritis, unspecified; G47.33 Obstructive sleep apnea (adult) (pediatric); I27.2 Other secondary pulmonary hypertension; K21.9 Gastro-esophageal reflux disease without esophagitis; K44.9 Diaphragmatic hernia without obstruction or gangrene; E66.9 Obesity, unspecified; D68.51 Activated protein C resistance; Z86.718 Personal history of other venous thrombosis and embolism; Z79.01 Long term (current) use of anticoagulants; N40.0 Benign prostatic hyperplasia without lower urinary tract symptoms
CPT/HCPCS: 6090; 93005; 93010; 96374; 96375; 96376; 99291; G0378; J0131; J1652; J2405; J3490